=== PATIENT | male | born 1950 | race Caucasian/White ===

== ENCOUNTER → 2019-11-21 08:38 | Outpatient (CLI) | payer MEDICARE, OTHER, SELFPAY ==
--- NOTE | 2019-11-21 08:42 | DI.RAD.S_ITS ---
PROCEDURE: XR FOOT RT MIN 3V INDICATIONS: r foot pain TECHNIQUE: 3 views of the foot were acquired. COMPARISON: None. FINDINGS: Bones: Minimally displaced fracture at the distal aspect of the fourth metatarsal. Soft tissues: No tibiotalar joint effusion. Achilles tendon appears normal. IMPRESSION: Minimally displaced fourth metatarsal fracture. Dictated by: Aline Pelayo M.D. on 11/21/2019 at 9:03 Approved by: Aline Pelayo M.D. on 11/21/2019 at 9:04
== END ==
PROVIDERS: Referring Provider Physician Assistant; Visit Provider Physician Assistant
DX: M79.671 Pain in right foot (principal); S92.341A Displaced fracture of fourth metatarsal bone, right foot, initial encounter for closed fracture
CPT/HCPCS: 73630

== ENCOUNTER → 2021-02-04 08:16 | Outpatient (CLI) | payer MEDICARE, OTHER, SELFPAY ==
--- NOTE | 2021-02-04 08:20 | DI.RAD.S_ITS ---
PROCEDURE: XR HIP W PEL IF DONE RT 2V INDICATIONS: right hip pain TECHNIQUE: AP pelvis with lateral view(s) of the right hip(s). COMPARISON: None. FINDINGS: Bones: No fractures or dislocations. Pelvic ring appears intact. No suspicious bony lesions. Mild symmetric hip joint osteoarthritis incidentally noted. Soft tissues: The visualized bowel gas pattern is normal. No suspicious soft tissue calcifications. IMPRESSION: Mild symmetric hip joint osteoarthritis incidentally noted, no trauma found. Dictated by: Freddie Ravi M.D. on 02/04/2021 at 8:44 Approved by: Freddie Ravi M.D. on 02/04/2021 at 8:46
== END ==
PROVIDERS: Referring Provider Physician Assistant; Visit Provider Physician Assistant
DX: M25.551 Pain in right hip (principal); M16.11 Unilateral primary osteoarthritis, right hip
CPT/HCPCS: 73502

== ENCOUNTER → 2021-04-25 10:01 | Outpatient (CLI) | payer MEDICARE, OTHER, SELFPAY ==
[2021-04-25 10:54] LABS: Add Manual Diff / Slide Review NO; Basophils Absolute Auto 100 /uL (0-100); Basophils Percent Auto 1.8 % (0-2); Eosinophils Absolute Auto 100 /uL (0-450); Eosinophils Percent Auto 2.6 % (2-4); Hematocrit 41.6 % (41-53); Hemoglobin 14.1 g/dL (13.5-17.5); Lymphocytes Absolute Auto 1700 /uL (1100-4500); Lymphocytes Percent Auto 31.9 % (25-40); Mean Corpuscular Hemoglobin 35.5 PG (26-34); Mean Corpuscular Volume 104.4 fL (80-100); Monocytes Absolute Auto 500 /uL (0-900); Monocytes Percent Auto 8.8 % (3-14); Neutrophils Absolute Auto 3000 /uL (1500-7000); Neutrophils Percent Auto 54.9 % (50-75); Platelet Count 187 X10^3/uL (150-400); Red Blood Cell Count 3.99 X10^6/uL (4.5-5.9); Red Cell Distribution Width 12.9 % (11.6-14.8); White Blood Cell Count 5.4 X10^3/uL (4.5-11.0)
[2021-04-25 11:11] LABS: Alanine Aminotransferase 37 IU/L (<50); Albumin 4.4 g/dL (3.5-5.0); Albumin Globulin Ratio 1.3 (1.0-2.8); Alkaline Phosphatase 81 U/L (38-126); Aspartate Aminotransferase 50 IU/L (17-59); BUN Creatinine Ratio 21.3 (6-22); Bilirubin Total 0.8 mg/dL (0.2-1.3); Blood Urea Nitrogen 19 mg/dL (9-20); Calcium 10.1 mg/dL (8.4-10.2); Carbon Dioxide 29 mmol/L (22-32); Chloride 104 mmol/L (98-107); Cholesterol 241 mg/dL (140-199); Estimated Glomerular Filt Rate > 60.0 mL/min (>60); Globulin 3.3 g/dL (1.7-4.1); Glucose 94 mg/dL (80-110); HDL Cholesterol 109 mg/dL (40-60); HEMOLYSIS < 15 (0-50); LDL Cholesterol Calculated 107 mg/dL (<100); Potassium 4.3 mmol/L (3.4-5.1); Sodium 139 mmol/L (137-145); Total Protein 7.7 g/dL (6.3-8.2); Triglycerides 125 mg/dL (35-150)
[2021-04-25 11:39] LABS: TSH w/ Reflex to FT4 1.35 uIU/mL (0.47-4.68)
[2021-04-25 11:41] LABS: Prostate Specific Antigen Scrn 2.64 ng/mL (0.1-4.0)
[2021-04-25 16:16] LABS: Creatinine Urine Random 171.5 mg/dL
[2021-04-25 16:21] LABS: Microalbumi Creatinin Ratio Ur 8.7 ug/mg CR (<30); Microalbumin Urine Random 1.5 mg/dL (0-1.6)
== END ==
PROVIDERS: Family Provider Family Medicine; PCP Family Medicine; Referring Provider Family Medicine; Visit Provider Family Medicine
DX: I10 Essential (primary) hypertension (principal); Z12.5 Encounter for screening for malignant neoplasm of prostate; M16.11 Unilateral primary osteoarthritis, right hip; Z13.220 Encounter for screening for lipoid disorders
CPT/HCPCS: 36415; 80053; 80061; 82043; 82570; 84443; 85025; G0103

== ENCOUNTER 2021-06-23 08:15 | Outpatient (RCR) | payer MEDICARE, OTHER, SELFPAY ==
--- NOTE | 2021-04-25 12:45 | PT.OIE ---
Current Diagnoses Unilateral primary osteoarthritis, right hip (04/25/21) Trochanteric bursitis, right hip (04/25/21) Past Medical History (Last Updated 03/28/21 @ 14:40 by Sean Burr MD) Osteoarthritis of right hip Primary hypertension Visit Care Team Role Provider Type Sean Burr MD Attending Provider Physician Family Provider Primary Care Provider Referring Provider Specialty: Family Practice Address: [address] [place] [address], [facility] Email: [email or web address] Physical Therapy Initial Evaluation PT-OP-A Visit Information Start: 04/06/21 14:58 Freq: Status: Active Protocol: Document 04/25/21 08:57 MB (Rec: 04/25/21 09:11 MB [id number]) Out-Patient Physical Therapy Visit Information Visit Information Visit Type Initial Evaluation Visit Note Medicare, 09/14 before KX Visit Start Time 08:57 Visit Stop Time 09:42 Total Visit Minutes 45 Visit Number 1 Evaluation Information Evaluation Date 04/25/21 PT-OP-B Current Condition Start: 04/06/21 14:58 Freq: Status: Active Protocol: Document 04/25/21 08:57 MB (Rec: 04/25/21 09:11 MB [id number]) Current Condition History of Current Condition Onset Date 6-10 months ago Current Complaints Right lateral hip pain over trochanter History of Current Condition Pt reports that he broke a metatarsal bone in his right foot about a year ago. He was in a boot and then got out. He did not get any therapy. The height of his boot was higher than his regular shoes and then the hip pain started about 6-10 months ago. Pt rates pain as 1-3/10 over lateral right hip since that time. Pt is taking THC and Advil and they may or may not be helpful. He wears loafers with arches in them in the house. He is taking walks on concrete and the road and that increases pain. Walking on hard surfaces is a problem. Walking on soft surfaces is not a problem. Pt has plantar fasciitis on his right foot. It was before the metatarsal fracture. He has two types hiking boots and he has good walking shoes. Pt states that the toes of both feet get tingly. They have been that way for a long time. It affects his balance. He uses a balance wheel that isn't very effective. Prior Treatments and Tests Pt has never had therapy Right hip x-ray: mild hip OA Treatment Goals Patient/Caregiver Goals To decrease right hip pain PT-OP-C Subjective Start: 04/06/21 14:58 Freq: Status: Active Protocol: Document 04/25/21 08:57 MB (Rec: 04/25/21 09:11 MB [id number]) OP-PT Subjective Patient Comments Patient Comments See history of current condition. PT-OP-G Mobility & Gait Start: 04/06/21 14:58 Freq: Status: Active Protocol: Document 04/25/21 08:57 MB (Rec: 04/25/21 12:45 MB [id number]) OP Gait Assessment Comments Gait Comments Decreased hip and pelvic movement with bare foot gait and he has no toe push-off either foot and actually has shorter steps with push-off through metatarsals, greater on the left. PT-OP-J Posture/Palpation/Skin Start: 04/06/21 14:58 Freq: Status: Active Protocol: Document 04/25/21 08:57 MB (Rec: 04/25/21 12:45 MB [id number]) Posture Evaluation Comments Posture Comments Standing posture with bare feet: left tragus is 2 in front of left AC joint, right shoulder is lower than the left and left scapula is 1/4 higher than the right. Pt presents with convexity to the right in thoracic spine, left iliac crest is slightly higher than the right, left fifth toe does not touch the floor and is adducted up and over 4th digit, WB right foot is heel to lateral foot. Many toe changes on the left and his 2nd-4th toes on the left do not extend. Pt reports that his shoes were too small in his teenage years and this may have affected his toes. PT-OP-K Range of Motion Start: 04/06/21 14:58 Freq: Status: Active Protocol: Document 04/25/21 08:57 MB (Rec: 04/25/21 12:45 MB [id number]) Hip Goniometric Range of Motion Hip ROM Limitations Comments Passive SLR in supine: right 20 deg and left 35 deg Ankle and Foot Goniometric Range of Motion Ankle and Foot ROM Limitations Comments Limited left ankle DF that does not reach neutral. Pt denies injury. He does appear to have changes at left talus, many toe changes Toe Range of Motion Toes ROM Limitations Comments Many toe changes, greater on the left foot. See postural comments above. No real toe extension through left digits and he has joint changes PT-OP-M Strength Start: 04/06/21 14:58 Freq: Status: Active Protocol: Document 04/25/21 08:57 MB (Rec: 04/25/21 12:45 MB [id number]) Hip Strength Hip Manual Muscle Testing Left Flexion (L2) 4 Good Abduction 3- Fair- Adduction 3 Fair Right Flexion (L2) 4 Good Abduction 3 Fair Adduction 3 Fair Knee Strength Knee Manual Muscle Testing Left Flexion (S2) 5 Normal Extension (L3) 5 Normal Right Flexion (S2) 5 Normal Extension (L3) 5 Normal Ankle/Foot Strength Ankle and Foot Manual Muscle Testing Left Comments MMT not accurate d/t range limitations Right Dorsiflexion (L4) 5 Normal Inversion 4 Good Eversion (S1) 4 Good Toe Strength Toe Manual Muscle Testing Left Great Toe Extension 3 Fair Right Great Toe Extension 4 Good PT-OP-Q Treatments Start: 04/06/21 14:58 Freq: Status: Active Protocol: Document 04/25/21 08:57 MB (Rec: 04/25/21 09:34 MB [id number]) Therapeutic Exercises Supine Exercises Pelvic realigment exercises Side bilateral Comments 5 rep, 3 sec hold all exercises PT-OP-T Assessment and Plan Start: 04/06/21 14:58 Freq: Status: Active Protocol: Document 04/25/21 08:57 MB (Rec: 04/25/21 12:45 MB [id number]) Physical Therapy Assessment Rehab Potential Rehabilitation Potential Fair Evaluation Complexity Number of Personal Factors/Comorbidities 1-2 Number of Body Systems Impaired 3 Clinical Presentation at Evaluation Evolving Impairments Impairments Activity Tolerance,Balance, Gait,Pain,Posture,ROM, Sensation,Soft Tissue Mobility ,Strength Other Impairments Personal factors include pt con't to walk on hard surfaces despite pain and he con't to sleep on right side despite right hip pain (he states that he cannot breathe well on his left side d/t nostril). Body systems affected include musculoskeletal, neuromuscular and neurological (pt reports tingling and decreased sensation in toes of both feet ). His clinical presentation is evolving in setting of OA right hip and trouble with sensation in toes. Other Concerns Fall Risk Yes Goals 3 Prison Goal (LTG) Pt will perform progressive HEP with I including flexiblity, pelvic realignment , strengthening and balance exercises to improve pain and balance by 06/25/21. LTG Duration 8 weeks 2 Prison Goal (LTG) Pt will perform WNLs on a standardized balance test to decrease fall risk by 06/25/21 . LTG Duration 8 weeks 1 [employer] Goal (LTG) Pt will report an 80% improvement in right lateral hip pain to improve quality of life by 06/25/21. LTG Duration 8 weeks Assessment Summary Assessment Pt is a 70 y/o male presenting with pain specifically over his right greater trochanter that is worse with sleeping on his right side and walking on concrete. X-ray revealed moderate right hip OA and his symptoms do seem to correspond with OA. He states that he cannot sleep on his left side d/t nasal issue. He has many changes in his feet, specifically his left toes and reports of right metatarsal fracture and plantar fasciitis in the recent past. These foot changes contribute to his overall postural presentation . He also has some changes in spinal curvature. He will benefit from PT to improve flexibility, pelvic alignment, strength and balance. Pt reports little to no sensation in any of his toes and that this affects his balance as well. Recommend follow-up with Dr. Burr about this. Physical Therapy Plan Frequency and Duration Frequency of Treatment 1-2x/wk Duration of Treatment 8 weeks Plan of Care Start Date 04/25/21 Plan of Care End Date 06/25/21 Therapeutic Interventions Therapeutic Interventions Balance Training,Canalithic Repositioning,Gait Training, Home Exercise Program,Joint Mobilizations,Manual Therapy, Neuromuscular Re-education, Patient/Caregiver Education, Self-Care/Home Management,Soft Tissue Mobilization, Therapeutic Activities, Therapeutic Exercises Modalities Cold Pack/Ice Massage,Hot Packs Next Visit Focus/Plan Next Note Type Treatment Note Next Visit Plan Progress flexibility exercises including Augustus stretch, hamstring stretch, hip rotator stretch. Teach self-massage for vastus lateralis with rolling pin
--- NOTE | 2021-04-25 12:45 | PT.OPPOC ---
Physical, Occupational & Speech Therapy At [facility] Current Diagnoses Unilateral primary osteoarthritis, right hip (04/25/21) Trochanteric bursitis, right hip (04/25/21) Visit Care Team Role Provider Type Sean Burr MD Attending Provider Physician Family Provider Primary Care Provider Referring Provider Specialty: Family Practice Address: [address] [place] [address], [facility] Email: [email or web address] Plan Of Care PT-OP-T Assessment and Plan Start: 04/06/21 14:58 Freq: Status: Active Protocol: Document 04/25/21 08:57 MB (Rec: 04/25/21 12:45 MB [id number]) Physical Therapy Assessment Rehab Potential Rehabilitation Potential Fair Evaluation Complexity Number of Personal Factors/Comorbidities 1-2 Number of Body Systems Impaired 3 Clinical Presentation at Evaluation Evolving Impairments Impairments Activity Tolerance,Balance, Gait,Pain,Posture,ROM, Sensation,Soft Tissue Mobility ,Strength Other Impairments Personal factors include pt con't to walk on hard surfaces despite pain and he con't to sleep on right side despite right hip pain (he states that he cannot breathe well on his left side d/t nostril). Body systems affected include musculoskeletal, neuromuscular and neurological (pt reports tingling and decreased sensation in toes of both feet ). His clinical presentation is evolving in setting of OA right hip and trouble with sensation in toes. Other Concerns Fall Risk Yes Goals 3 Fdc Goal (LTG) Pt will perform progressive HEP with I including flexiblity, pelvic realignment , strengthening and balance exercises to improve pain and balance by 06/25/21. LTG Duration 8 weeks 2 Offset Label Rewinder Goal (LTG) Pt will perform WNLs on a standardized balance test to decrease fall risk by 06/25/21 . LTG Duration 8 weeks 1 Fdc Goal (LTG) Pt will report an 80% improvement in right lateral hip pain to improve quality of life by 06/25/21. LTG Duration 8 weeks Assessment Summary Assessment Pt is a 70 y/o male presenting with pain specifically over his right greater trochanter that is worse with sleeping on his right side and walking on concrete. X-ray revealed moderate right hip OA and his symptoms do seem to correspond with OA. He states that he cannot sleep on his left side d/t nasal issue. He has many changes in his feet, specifically his left toes and reports of right metatarsal fracture and plantar fasciitis in the recent past. These foot changes contribute to his overall postural presentation . He also has some changes in spinal curvature. He will benefit from PT to improve flexibility, pelvic alignment, strength and balance. Pt reports little to no sensation in any of his toes and that this affects his balance as well. Recommend follow-up with Dr. Burr about this. Physical Therapy Plan Frequency and Duration Frequency of Treatment 1-2x/wk Duration of Treatment 8 weeks Plan of Care Start Date 04/25/21 Plan of Care End Date 06/25/21 Therapeutic Interventions Therapeutic Interventions Balance Training,Canalithic Repositioning,Gait Training, Home Exercise Program,Joint Mobilizations,Manual Therapy, Neuromuscular Re-education, Patient/Caregiver Education, Self-Care/Home Management,Soft Tissue Mobilization, Therapeutic Activities, Therapeutic Exercises Modalities Cold Pack/Ice Massage,Hot Packs Next Visit Focus/Plan Next Note Type Treatment Note Next Visit Plan Progress flexibility exercises including Augustus stretch, hamstring stretch, hip rotator stretch. Teach self-massage for vastus lateralis with rolling pin Plan of Care Dates Plan of Care Start Date 04/25/21 Plan of Care End Date 06/25/21 Electronically Signed by: Catalina Ferrer PT 04/25/21 9918 Please Sign and Return: I have reviewed this Plan of Care and certify that the skilled therapy services above are required to meet the patient?s needs. Physician Signature Date Printed Name and Credentials Clinical Instructor Signature Printed Name and Credentials
--- NOTE | 2021-04-28 13:01 | PT.OTN ---
Current Diagnoses Unilateral primary osteoarthritis, right hip (04/28/21) Trochanteric bursitis, right hip (04/28/21) Physical Therapy Treatment Note PT-OP-A Visit Information Start: 04/06/21 14:58 Freq: Status: Active Protocol: Document 04/28/21 12:15 MB (Rec: 04/28/21 13:01 MB [id number]) Out-Patient Physical Therapy Visit Information Visit Information Visit Type Treatment Note Visit Note Medicare 10/15 before KX Visit Start Time 12:15 Visit Stop Time 12:55 Total Visit Minutes 40 Visit Number 2 PT-OP-B Current Condition Start: 04/06/21 14:58 Freq: Status: Active Protocol: Document 04/25/21 08:57 MB (Rec: 04/25/21 09:11 MB [id number]) Current Condition History of Current Condition Onset Date 6-10 months ago Current Complaints Right lateral hip pain over trochanter History of Current Condition Pt reports that he broke a metatarsal bone in his right foot about a year ago. He was in a boot and then got out. He did not get any therapy. The height of his boot was higher than his regular shoes and then the hip pain started about 6-10 months ago. Pt rates pain as 1-3/10 over lateral right hip since that time. Pt is taking THC and Advil and they may or may not be helpful. He wears loafers with arches in them in the house. He is taking walks on concrete and the road and that increases pain. Walking on hard surfaces is a problem. Walking on soft surfaces is not a problem. Pt has plantar fasciitis on his right foot. It was before the metatarsal fracture. He has two types hiking boots and he has good walking shoes. Pt states that the toes of both feet get tingly. They have been that way for a long time. It affects his balance. He uses a balance wheel that isn't very effective. Prior Treatments and Tests Pt has never had therapy Right hip x-ray: mild hip OA Treatment Goals Patient/Caregiver Goals To decrease right hip pain PT-OP-C Subjective Start: 04/06/21 14:58 Freq: Status: Active Protocol: Document 04/28/21 12:15 MB (Rec: 04/28/21 13:01 MB [id number]) OP-PT Subjective Patient Comments Patient Comments Pt states that he did the pelvic realignment exercises. He used a paper towel roll. PT-OP-G Mobility & Gait Start: 04/06/21 14:58 Freq: Status: Active Protocol: Document 04/25/21 08:57 MB (Rec: 04/25/21 12:45 MB [id number]) OP Gait Assessment Comments Gait Comments Decreased hip and pelvic movement with bare foot gait and he has no toe push-off either foot and actually has shorter steps with push-off through metatarsals, greater on the left. PT-OP-J Posture/Palpation/Skin Start: 04/06/21 14:58 Freq: Status: Active Protocol: Document 04/25/21 08:57 MB (Rec: 04/25/21 12:45 MB [id number]) Posture Evaluation Comments Posture Comments Standing posture with bare feet: left tragus is 2 in front of left AC joint, right shoulder is lower than the left and left scapula is 1/4 higher than the right. Pt presents with convexity to the right in thoracic spine, left iliac crest is slightly higher than the right, left fifth toe does not touch the floor and is adducted up and over 4th digit, WB right foot is heel to lateral foot. Many toe changes on the left and his 2nd-4th toes on the left do not extend. Pt reports that his shoes were too small in his teenage years and this may have affected his toes. PT-OP-K Range of Motion Start: 04/06/21 14:58 Freq: Status: Active Protocol: Document 04/25/21 08:57 MB (Rec: 04/25/21 12:45 MB [id number]) Hip Goniometric Range of Motion Hip ROM Limitations Comments Passive SLR in supine: right 20 deg and left 35 deg Ankle and Foot Goniometric Range of Motion Ankle and Foot ROM Limitations Comments Limited left ankle DF that does not reach neutral. Pt denies injury. He does appear to have changes at left talus, many toe changes Toe Range of Motion Toes ROM Limitations Comments Many toe changes, greater on the left foot. See postural comments above. No real toe extension through left digits and he has joint changes PT-OP-M Strength Start: 04/06/21 14:58 Freq: Status: Active Protocol: Document 04/25/21 08:57 MB (Rec: 04/25/21 12:45 MB [id number]) Hip Strength Hip Manual Muscle Testing Left Flexion (L2) 4 Good Abduction 3- Fair- Adduction 3 Fair Right Flexion (L2) 4 Good Abduction 3 Fair Adduction 3 Fair Knee Strength Knee Manual Muscle Testing Left Flexion (S2) 5 Normal Extension (L3) 5 Normal Right Flexion (S2) 5 Normal Extension (L3) 5 Normal Ankle/Foot Strength Ankle and Foot Manual Muscle Testing Left Comments MMT not accurate d/t range limitations Right Dorsiflexion (L4) 5 Normal Inversion 4 Good Eversion (S1) 4 Good Toe Strength Toe Manual Muscle Testing Left Great Toe Extension 3 Fair Right Great Toe Extension 4 Good PT-OP-Q Treatments Start: 04/06/21 14:58 Freq: Status: Active Protocol: Document 04/28/21 12:15 MB (Rec: 04/28/21 13:01 MB [id number]) Therapeutic Exercises Supine Exercises Hip rotator stretch Side bilateral Comments Use of towel under right leg to stretch left hip Hamstring stretch Supine Exercise Name Towel behind leg Comments Opposite leg straight, hands behind leg and 30 AP Abdominal drawing in with pelvic tilt Comments Ed and pt to perform before Augustus stretch Augustus stretch Supine Exercise Name Abdominal drawing in and pelvic tilt first Side bilateral Comments 30 sec hold each Pelvic realigment exercises Side bilateral Comments 5 rep, 3 sec hold all exercises Sitting Exercises Use of rolling pin for self massage Comments See saw motion PT-OP-T Assessment and Plan Start: 04/06/21 14:58 Freq: Status: Active Protocol: Document 04/28/21 12:15 MB (Rec: 04/28/21 13:01 MB [id number]) Physical Therapy Assessment Rehab Potential Rehabilitation Potential Fair Evaluation Complexity Number of Personal Factors/Comorbidities 1-2 Number of Body Systems Impaired 3 Clinical Presentation at Evaluation Evolving Impairments Impairments Activity Tolerance,Balance, Gait,Pain,Posture,ROM, Sensation,Soft Tissue Mobility ,Strength Other Impairments Personal factors include pt con't to walk on hard surfaces despite pain and he con't to sleep on right side despite right hip pain (he states that he cannot breathe well on his left side d/t nostril). Body systems affected include musculoskeletal, neuromuscular and neurological (pt reports tingling and decreased sensation in toes of both feet ). His clinical presentation is evolving in setting of OA right hip and trouble with sensation in toes. Other Concerns Fall Risk Yes Goals 3 Vice President [employer] Goal (LTG) Pt will perform progressive HEP with I including flexiblity, pelvic realignment , strengthening and balance exercises to improve pain and balance by 06/25/21. LTG Duration 8 weeks 2 Halfway Goal (LTG) Pt will perform WNLs on a standardized balance test to decrease fall risk by 06/25/21 . LTG Duration 8 weeks 1 Halfway Goal (LTG) Pt will report an 80% improvement in right lateral hip pain to improve quality of life by 06/25/21. LTG Duration 8 weeks Assessment Summary Assessment Initiated flexibility training today and pt performs well. He is wearing jeans and will wear more flexible pants in future treatments. Pt sleeps on his painful right side d/t trouble breathing on his left and so may benefit from nasal breathing training. Physical Therapy Plan Frequency and Duration Frequency of Treatment 1-2x/wk Duration of Treatment 8 weeks Plan of Care Start Date 04/25/21 Plan of Care End Date 06/25/21 Therapeutic Interventions Therapeutic Interventions Balance Training,Canalithic Repositioning,Gait Training, Home Exercise Program,Joint Mobilizations,Manual Therapy, Neuromuscular Re-education, Patient/Caregiver Education, Self-Care/Home Management,Soft Tissue Mobilization, Therapeutic Activities, Therapeutic Exercises Modalities Cold Pack/Ice Massage,Hot Packs Next Visit Focus/Plan Next Note Type Treatment Note Next Visit Plan Ergonomic ed, core progression , manual work, [place] breathing
--- NOTE | 2021-05-05 10:30 | PT.OTN ---
Current Diagnoses Unilateral primary osteoarthritis, right hip (05/05/21) Trochanteric bursitis, right hip (05/05/21) Physical Therapy Treatment Note PT-OP-A Visit Information Start: 04/06/21 14:58 Freq: Status: Active Protocol: Document 05/05/21 09:50 SP (Rec: 05/05/21 10:34 SP [id number]) Out-Patient Physical Therapy Visit Information Visit Information Visit Type Treatment Note Visit Note Medicare 11/12 before KX Visit Start Time 09:50 Visit Stop Time 10:30 Total Visit Minutes 40 Visit Number 3 Number of DOORSHAKER Visits 1 Evaluation Information Evaluation Date 04/25/21 PT-OP-B Current Condition Start: 04/06/21 14:58 Freq: Status: Active Protocol: Document 04/25/21 08:57 MB (Rec: 04/25/21 09:11 MB [id number]) Current Condition History of Current Condition Onset Date 6-10 months ago Current Complaints Right lateral hip pain over trochanter History of Current Condition Pt reports that he broke a metatarsal bone in his right foot about a year ago. He was in a boot and then got out. He did not get any therapy. The height of his boot was higher than his regular shoes and then the hip pain started about 6-10 months ago. Pt rates pain as 1-3/10 over lateral right hip since that time. Pt is taking THC and Advil and they may or may not be helpful. He wears loafers with arches in them in the house. He is taking walks on concrete and the road and that increases pain. Walking on hard surfaces is a problem. Walking on soft surfaces is not a problem. Pt has plantar fasciitis on his right foot. It was before the metatarsal fracture. He has two types hiking boots and he has good walking shoes. Pt states that the toes of both feet get tingly. They have been that way for a long time. It affects his balance. He uses a balance wheel that isn't very effective. Prior Treatments and Tests Pt has never had therapy Right hip x-ray: mild hip OA Treatment Goals Patient/Caregiver Goals To decrease right hip pain PT-OP-C Subjective Start: 04/06/21 14:58 Freq: Status: Active Protocol: Document 05/05/21 09:50 SP (Rec: 05/05/21 10:34 SP [id number]) OP-PT Subjective Patient Comments Patient Comments Pt stated not seeing improvements but doing the stretching. He still has pain in R hip WB on firm surfaces, but better or none over soft surfaces. Sleeps on R side at night only, and not L due to not able to breath well on L due to blockage nostril. Patient Reported Progress Same PT-OP-G Mobility & Gait Start: 04/06/21 14:58 Freq: Status: Active Protocol: Document 04/25/21 08:57 MB (Rec: 04/25/21 12:45 MB [id number]) OP Gait Assessment Comments Gait Comments Decreased hip and pelvic movement with bare foot gait and he has no toe push-off either foot and actually has shorter steps with push-off through metatarsals, greater on the left. PT-OP-J Posture/Palpation/Skin Start: 04/06/21 14:58 Freq: Status: Active Protocol: Document 04/25/21 08:57 MB (Rec: 04/25/21 12:45 MB [id number]) Posture Evaluation Comments Posture Comments Standing posture with bare feet: left tragus is 2 in front of left AC joint, right shoulder is lower than the left and left scapula is 1/4 higher than the right. Pt presents with convexity to the right in thoracic spine, left iliac crest is slightly higher than the right, left fifth toe does not touch the floor and is adducted up and over 4th digit, WB right foot is heel to lateral foot. Many toe changes on the left and his 2nd-4th toes on the left do not extend. Pt reports that his shoes were too small in his teenage years and this may have affected his toes. PT-OP-K Range of Motion Start: 04/06/21 14:58 Freq: Status: Active Protocol: Document 04/25/21 08:57 MB (Rec: 04/25/21 12:45 MB [id number]) Hip Goniometric Range of Motion Hip ROM Limitations Comments Passive SLR in supine: right 20 deg and left 35 deg Ankle and Foot Goniometric Range of Motion Ankle and Foot ROM Limitations Comments Limited left ankle DF that does not reach neutral. Pt denies injury. He does appear to have changes at left talus, many toe changes Toe Range of Motion Toes ROM Limitations Comments Many toe changes, greater on the left foot. See postural comments above. No real toe extension through left digits and he has joint changes PT-OP-M Strength Start: 04/06/21 14:58 Freq: Status: Active Protocol: Document 04/25/21 08:57 MB (Rec: 04/25/21 12:45 MB [id number]) Hip Strength Hip Manual Muscle Testing Left Flexion (L2) 4 Good Abduction 3- Fair- Adduction 3 Fair Right Flexion (L2) 4 Good Abduction 3 Fair Adduction 3 Fair Knee Strength Knee Manual Muscle Testing Left Flexion (S2) 5 Normal Extension (L3) 5 Normal Right Flexion (S2) 5 Normal Extension (L3) 5 Normal Ankle/Foot Strength Ankle and Foot Manual Muscle Testing Left Comments MMT not accurate d/t range limitations Right Dorsiflexion (L4) 5 Normal Inversion 4 Good Eversion (S1) 4 Good Toe Strength Toe Manual Muscle Testing Left Great Toe Extension 3 Fair Right Great Toe Extension 4 Good PT-OP-Q Treatments Start: 04/06/21 14:58 Freq: Status: Active Protocol: Document 05/05/21 09:50 SP (Rec: 05/05/21 10:34 SP [id number]) Therapeutic Exercises Supine Exercises Hamstring stretch Supine Exercise Name grasps behind thigh Side bilateral Reps/Minutes 30 sec Comments Opposite leg straight, hands behind leg and 30 AP Abdominal drawing in with pelvic tilt Side right Reps/Minutes 3 sec hold x5 Comments Ed and pt to perform before Augustus stretch Augustus stretch Supine Exercise Name Abdominal drawing in and pelvic tilt first Side bilateral Reps/Minutes 30 hold x2-3 reps Comments reviewed holding for time allowed to decrease hip tension Pelvic realigment exercises Side bilateral Equipment Used uses roll of toilet paper Comments 5 rep, 3 sec hold all exercises Sitting Exercises pirformis stretch Sitting Exercise Name added to HEP in different seated vs supine position- finds seated better Side bilateral Reps/Minutes 30 x2 Comments good feedback results of streth Use of rolling pin for self massage Sitting Exercise Name over quad: distal sup R knee, Mid quad L Comments See saw motion- good performance Standing Exercises self massage ball on wall Standing Exercise Name Glut med, pirformis- added for HEP Side right Equipment Used racquetball ball on wall Reps/Minutes 2 min Comments good feedback results Manual Therapy Treatment Soft Tissue Mobilization R hip Body Location pirformis, glut med, TFL Mobilization Type Myofascial Release,Strumming Intensity/Depth Moderate Body Position Sidelying Comments L sidelying- good feedback response Self-Care/Home Management Treatment Education Patient Education Joint Protection,Pain Management Other Education discussed sleeping w/ pillows between BLE on R side to see of helpful pain on R side. Can 't sleep on L due to decreased nostril blockage. PT-OP-T Assessment and Plan Start: 04/06/21 14:58 Freq: Status: Active Protocol: Document 05/05/21 09:50 SP (Rec: 05/05/21 10:34 SP [id number]) Physical Therapy Assessment Goals 3 Cutting Pressman Goal (LTG) Pt will perform progressive HEP with I including flexiblity, pelvic realignment , strengthening and balance exercises to improve pain and balance by 06/25/21. LTG Duration 8 weeks 2 Nursing Home Goal (LTG) Pt will perform WNLs on a standardized balance test to decrease fall risk by 06/25/21 . LTG Duration 8 weeks 1 Nursing Home Goal (LTG) Pt will report an 80% improvement in right lateral hip pain to improve quality of life by 06/25/21. LTG Duration 8 weeks Assessment Summary Assessment Pt stated still having pain over R hip, reported lessening post manual and stretching. Initiated self STMs using racquetball/ tennis ball on wall for self performance/ relief with good results and reviewed use of rolling pin, still has to find his at home and seemed to help during PT tx. Reviewed stretching HEP with no adverse affects, occasional cues for set up. Discussed sleeping positioning and use of pillows for relief of pain on R hip but unableto sleep on L due to nostril lack of breathing. Next tx assess if pillow support education helped improved alignment for confort. If improving, progress core strengthening, and initiated butekyo breathing next tx. Physical Therapy Plan Frequency and Duration Frequency of Treatment 1-2x/wk Duration of Treatment 8 weeks Plan of Care Start Date 04/25/21 Plan of Care End Date 06/25/21 Therapeutic Interventions Therapeutic Interventions Balance Training,Canalithic Repositioning,Gait Training, Home Exercise Program,Joint Mobilizations,Manual Therapy, Neuromuscular Re-education, Patient/Caregiver Education, Self-Care/Home Management,Soft Tissue Mobilization, Therapeutic Activities, Therapeutic Exercises Modalities Cold Pack/Ice Massage,Hot Packs Next Visit Focus/Plan Next Note Type Treatment Note Next Visit Plan Assess response to manual, stretching and initiated self STMS using rolling pin/ racquetball on wall. POC: Ergonomic ed, core progression, manual work, Buteyko breathing
--- NOTE | 2021-05-12 13:54 | PT.OTN ---
Current Diagnoses Unilateral primary osteoarthritis, right hip (05/12/21) Trochanteric bursitis, right hip (05/12/21) Physical Therapy Treatment Note PT-OP-A Visit Information Start: 04/06/21 14:58 Freq: Status: Active Protocol: Document 05/12/21 13:00 SP (Rec: 05/13/21 15:26 SP [id number]) Out-Patient Physical Therapy Visit Information Visit Information Visit Type Treatment Note Visit Note Medicare 12/13 before KX Visit Start Time 13:00 Visit Stop Time 13:54 Total Visit Minutes 54 Visit Number 4 Number of MENTAL HEALTH PRACTITIONER Visits 2 Evaluation Information Evaluation Date 04/25/21 PT-OP-B Current Condition Start: 04/06/21 14:58 Freq: Status: Active Protocol: Document 04/25/21 08:57 MB (Rec: 04/25/21 09:11 MB [id number]) Current Condition History of Current Condition Onset Date 6-10 months ago Current Complaints Right lateral hip pain over trochanter History of Current Condition Pt reports that he broke a metatarsal bone in his right foot about a year ago. He was in a boot and then got out. He did not get any therapy. The height of his boot was higher than his regular shoes and then the hip pain started about 6-10 months ago. Pt rates pain as 1-3/10 over lateral right hip since that time. Pt is taking THC and Advil and they may or may not be helpful. He wears loafers with arches in them in the house. He is taking walks on concrete and the road and that increases pain. Walking on hard surfaces is a problem. Walking on soft surfaces is not a problem. Pt has plantar fasciitis on his right foot. It was before the metatarsal fracture. He has two types hiking boots and he has good walking shoes. Pt states that the toes of both feet get tingly. They have been that way for a long time. It affects his balance. He uses a balance wheel that isn't very effective. Prior Treatments and Tests Pt has never had therapy Right hip x-ray: mild hip OA Treatment Goals Patient/Caregiver Goals To decrease right hip pain PT-OP-C Subjective Start: 04/06/21 14:58 Freq: Status: Active Protocol: Document 05/12/21 13:00 SP (Rec: 05/13/21 15:26 SP [id number]) OP-PT Subjective Patient Comments Patient Comments Pt states compliant with stretching HEP doesn't see immediate positive responses. Noted that walking firm surfaces having decreasing pain after 10- 15 min of mobility. Patient Reported Progress Improving PT-OP-G Mobility & Gait Start: 04/06/21 14:58 Freq: Status: Active Protocol: Document 04/25/21 08:57 MB (Rec: 04/25/21 12:45 MB [id number]) OP Gait Assessment Comments Gait Comments Decreased hip and pelvic movement with bare foot gait and he has no toe push-off either foot and actually has shorter steps with push-off through metatarsals, greater on the left. PT-OP-J Posture/Palpation/Skin Start: 04/06/21 14:58 Freq: Status: Active Protocol: Document 04/25/21 08:57 MB (Rec: 04/25/21 12:45 MB [id number]) Posture Evaluation Comments Posture Comments Standing posture with bare feet: left tragus is 2 in front of left AC joint, right shoulder is lower than the left and left scapula is 1/4 higher than the right. Pt presents with convexity to the right in thoracic spine, left iliac crest is slightly higher than the right, left fifth toe does not touch the floor and is adducted up and over 4th digit, WB right foot is heel to lateral foot. Many toe changes on the left and his 2nd-4th toes on the left do not extend. Pt reports that his shoes were too small in his teenage years and this may have affected his toes. PT-OP-K Range of Motion Start: 04/06/21 14:58 Freq: Status: Active Protocol: Document 04/25/21 08:57 MB (Rec: 04/25/21 12:45 MB [id number]) Hip Goniometric Range of Motion Hip ROM Limitations Comments Passive SLR in supine: right 20 deg and left 35 deg Ankle and Foot Goniometric Range of Motion Ankle and Foot ROM Limitations Comments Limited left ankle DF that does not reach neutral. Pt denies injury. He does appear to have changes at left talus, many toe changes Toe Range of Motion Toes ROM Limitations Comments Many toe changes, greater on the left foot. See postural comments above. No real toe extension through left digits and he has joint changes PT-OP-M Strength Start: 04/06/21 14:58 Freq: Status: Active Protocol: Document 04/25/21 08:57 MB (Rec: 04/25/21 12:45 MB [id number]) Hip Strength Hip Manual Muscle Testing Left Flexion (L2) 4 Good Abduction 3- Fair- Adduction 3 Fair Right Flexion (L2) 4 Good Abduction 3 Fair Adduction 3 Fair Knee Strength Knee Manual Muscle Testing Left Flexion (S2) 5 Normal Extension (L3) 5 Normal Right Flexion (S2) 5 Normal Extension (L3) 5 Normal Ankle/Foot Strength Ankle and Foot Manual Muscle Testing Left Comments MMT not accurate d/t range limitations Right Dorsiflexion (L4) 5 Normal Inversion 4 Good Eversion (S1) 4 Good Toe Strength Toe Manual Muscle Testing Left Great Toe Extension 3 Fair Right Great Toe Extension 4 Good PT-OP-Q Treatments Start: 04/06/21 14:58 Freq: Status: Active Protocol: Document 05/12/21 13:00 SP (Rec: 05/13/21 15:26 SP [id number]) Therapeutic Exercises Supine Exercises TA SLR Supine Exercise Name added to HEP Side bilateral Reps/Minutes 2x5 reps Comments cued neutral pelvis, core fac, slow eccentric control clamshell Supine Exercise Name added to HEP Resistance TB #1 Reps/Minutes 2x10 Comments cued neutral pelvis, core fac, slow eccentric control Neuro Re-Education Treatment Balance Activities SLS Details core, hip abd fac w/ trunk alignment Surface firm Equipment counter contace PRN, mirror Comments cued elevated posture over stance LE w/ core facillitation. Improved time as reps progressed. corner balance Details NBOS, semi tandem Surface firm Equipment back to corner, chair front Comments Pt able to complete head turns NBOS, semi tandem, EC NBOS 30 , 3 sec semitandem and LOB to L. Instructed leave EC semi tandem in PT only with agreement. Self-Care/Home Management Treatment Education Patient Education Body Mechanics,Joint Protection,Pain Management, Posture Other Education Extra time spent discussing and performance of seated ergonomic set up of use of laptop propped up on pillow in lap and pillows behind back for upright posture due to not having extra desk for him to use, uses office for work . MENTAL HEALTH PRACTITIONER suggested using kitchen table if possible. PT-OP-T Assessment and Plan Start: 04/06/21 14:58 Freq: Status: Active Protocol: Document 05/12/21 13:00 SP (Rec: 05/13/21 15:26 SP [id number]) Physical Therapy Assessment Goals 3 [facility] Goal (LTG) Pt will perform progressive HEP with I including flexiblity, pelvic realignment , strengthening and balance exercises to improve pain and balance by 06/25/21. LTG Duration 8 weeks 2 Immunohematologist Goal (LTG) Pt will perform WNLs on a standardized balance test to decrease fall risk by 06/25/21 . LTG Duration 8 weeks 1 [facility] Goal (LTG) Pt will report an 80% improvement in right lateral hip pain to improve quality of life by 06/25/21. LTG Duration 8 weeks Assessment Summary Assessment Pt stated compliant with stretching, tolerated initiated core and hip abd strengthening. Improved pelvic / trunk stability with cuing, painfree, improved awareness of balance post initiated supine ther ex and SLS in mirror and carryover to corner balance for HEP. Physical Therapy Plan Frequency and Duration Frequency of Treatment 1-2x/wk Duration of Treatment 8 weeks Plan of Care Start Date 04/25/21 Plan of Care End Date 06/25/21 Therapeutic Interventions Therapeutic Interventions Balance Training,Canalithic Repositioning,Gait Training, Home Exercise Program,Joint Mobilizations,Manual Therapy, Neuromuscular Re-education, Patient/Caregiver Education, Self-Care/Home Management,Soft Tissue Mobilization, Therapeutic Activities, Therapeutic Exercises Modalities Cold Pack/Ice Massage,Hot Packs Next Visit Focus/Plan Next Note Type Treatment Note Next Visit Plan Assess response to added core and hip abd strengthening progression and suggestions of posture and laptop use for improved alignment last tx. POC and next tx: recheck in on Ergonomic ed, progress core progression, manual work, added Buteyko breathing
--- NOTE | 2021-05-18 10:07 | PT.OTN ---
Current Diagnoses Unilateral primary osteoarthritis, right hip (05/18/21) Trochanteric bursitis, right hip (05/18/21) Physical Therapy Treatment Note PT-OP-A Visit Information Start: 04/06/21 14:58 Freq: Status: Active Protocol: Document 05/18/21 08:58 MB (Rec: 05/18/21 10:07 MB [id number]) Out-Patient Physical Therapy Visit Information Visit Information Visit Type Treatment Note Visit Note Medicare 01/12 before KX Visit Start Time 08:58 Visit Stop Time 09:58 Total Visit Minutes 60 Visit Number 5 Number of MISSILE PAD MECHANIC Visits 0 Evaluation Information Evaluation Date 04/25/21 PT-OP-B Current Condition Start: 04/06/21 14:58 Freq: Status: Active Protocol: Document 04/25/21 08:57 MB (Rec: 04/25/21 09:11 MB [id number]) Current Condition History of Current Condition Onset Date 6-10 months ago Current Complaints Right lateral hip pain over trochanter History of Current Condition Pt reports that he broke a metatarsal bone in his right foot about a year ago. He was in a boot and then got out. He did not get any therapy. The height of his boot was higher than his regular shoes and then the hip pain started about 6-10 months ago. Pt rates pain as 1-3/10 over lateral right hip since that time. Pt is taking THC and Advil and they may or may not be helpful. He wears loafers with arches in them in the house. He is taking walks on concrete and the road and that increases pain. Walking on hard surfaces is a problem. Walking on soft surfaces is not a problem. Pt has plantar fasciitis on his right foot. It was before the metatarsal fracture. He has two types hiking boots and he has good walking shoes. Pt states that the toes of both feet get tingly. They have been that way for a long time. It affects his balance. He uses a balance wheel that isn't very effective. Prior Treatments and Tests Pt has never had therapy Right hip x-ray: mild hip OA Treatment Goals Patient/Caregiver Goals To decrease right hip pain PT-OP-C Subjective Start: 04/06/21 14:58 Freq: Status: Active Protocol: Document 05/18/21 08:58 MB (Rec: 05/18/21 10:07 MB [id number]) OP-PT Subjective Patient Comments Patient Comments Pt states that his right hip pain is still the same. He states that walking on hard surfaces still causes pain and soft surfaces is better. He feels a little better after walking 15 minutes. He can then do an hour walk on a hard surface for an hour. PT-OP-G Mobility & Gait Start: 04/06/21 14:58 Freq: Status: Active Protocol: Document 04/25/21 08:57 MB (Rec: 04/25/21 12:45 MB [id number]) OP Gait Assessment Comments Gait Comments Decreased hip and pelvic movement with bare foot gait and he has no toe push-off either foot and actually has shorter steps with push-off through metatarsals, greater on the left. PT-OP-J Posture/Palpation/Skin Start: 04/06/21 14:58 Freq: Status: Active Protocol: Document 04/25/21 08:57 MB (Rec: 04/25/21 12:45 MB [id number]) Posture Evaluation Comments Posture Comments Standing posture with bare feet: left tragus is 2 in front of left AC joint, right shoulder is lower than the left and left scapula is 1/4 higher than the right. Pt presents with convexity to the right in thoracic spine, left iliac crest is slightly higher than the right, left fifth toe does not touch the floor and is adducted up and over 4th digit, WB right foot is heel to lateral foot. Many toe changes on the left and his 2nd-4th toes on the left do not extend. Pt reports that his shoes were too small in his teenage years and this may have affected his toes. PT-OP-K Range of Motion Start: 04/06/21 14:58 Freq: Status: Active Protocol: Document 04/25/21 08:57 MB (Rec: 04/25/21 12:45 MB [id number]) Hip Goniometric Range of Motion Hip ROM Limitations Comments Passive SLR in supine: right 20 deg and left 35 deg Ankle and Foot Goniometric Range of Motion Ankle and Foot ROM Limitations Comments Limited left ankle DF that does not reach neutral. Pt denies injury. He does appear to have changes at left talus, many toe changes Toe Range of Motion Toes ROM Limitations Comments Many toe changes, greater on the left foot. See postural comments above. No real toe extension through left digits and he has joint changes PT-OP-M Strength Start: 04/06/21 14:58 Freq: Status: Active Protocol: Document 04/25/21 08:57 MB (Rec: 04/25/21 12:45 MB [id number]) Hip Strength Hip Manual Muscle Testing Left Flexion (L2) 4 Good Abduction 3- Fair- Adduction 3 Fair Right Flexion (L2) 4 Good Abduction 3 Fair Adduction 3 Fair Knee Strength Knee Manual Muscle Testing Left Flexion (S2) 5 Normal Extension (L3) 5 Normal Right Flexion (S2) 5 Normal Extension (L3) 5 Normal Ankle/Foot Strength Ankle and Foot Manual Muscle Testing Left Comments MMT not accurate d/t range limitations Right Dorsiflexion (L4) 5 Normal Inversion 4 Good Eversion (S1) 4 Good Toe Strength Toe Manual Muscle Testing Left Great Toe Extension 3 Fair Right Great Toe Extension 4 Good PT-OP-Q Treatments Start: 04/06/21 14:58 Freq: Status: Active Protocol: Document 05/18/21 08:58 MB (Rec: 05/18/21 10:07 MB [id number]) Manual Therapy Treatment Other Other Manual Treatments Pt agrees to Counterstrain to asssess and treat fascial tension. He presents with tension in the following fascial systems: ALL, cartilage, visceral, dura, spinal medullary veins, sympathetics and he is tighter on the right. PT treats stacks in dura, spinal medullary vein, sympathetic nerves and ALL and scan does improve. PT-OP-T Assessment and Plan Start: 04/06/21 14:58 Freq: Status: Active Protocol: Document 05/18/21 08:58 MB (Rec: 05/18/21 10:07 MB [id number]) Physical Therapy Assessment Goals 3 Machine Bunch Maker Goal (LTG) Pt will perform progressive HEP with I including flexiblity, pelvic realignment , strengthening and balance exercises to improve pain and balance by 06/25/21. LTG Duration 8 weeks 2 Machine Bunch Maker Goal (LTG) Pt will perform WNLs on a standardized balance test to decrease fall risk by 06/25/21 . LTG Duration 8 weeks 1 Correction Goal (LTG) Pt will report an 80% improvement in right lateral hip pain to improve quality of life by 06/25/21. LTG Duration 8 weeks Assessment Summary Assessment Initiated Counterstrain today and pt responds well. He has a lot of fascial tension and this does improve with treatment. Will see if this improves his right hip pain. Progress other manual intervention, flexibility and strengthening. Physical Therapy Plan Frequency and Duration Frequency of Treatment 1-2x/wk Duration of Treatment 8 weeks Plan of Care Start Date 04/25/21 Plan of Care End Date 06/25/21 Therapeutic Interventions Therapeutic Interventions Balance Training,Canalithic Repositioning,Gait Training, Home Exercise Program,Joint Mobilizations,Manual Therapy, Neuromuscular Re-education, Patient/Caregiver Education, Self-Care/Home Management,Soft Tissue Mobilization, Therapeutic Activities, Therapeutic Exercises Modalities Cold Pack/Ice Massage,Hot Packs Next Visit Focus/Plan Next Note Type Treatment Note Next Visit Plan Review exercises, pt to bring in handouts
--- NOTE | 2021-05-25 09:46 | PT.OTN ---
Current Diagnoses Unilateral primary osteoarthritis, right hip (05/25/21) Trochanteric bursitis, right hip (05/25/21) Physical Therapy Treatment Note PT-OP-A Visit Information Start: 04/06/21 14:58 Freq: Status: Active Protocol: Document 05/25/21 09:05 MB (Rec: 05/25/21 09:46 MB [id number]) Out-Patient Physical Therapy Visit Information Visit Information Visit Type Treatment Note Visit Note Medicare 02/12 before KX Visit Start Time 09:05 Visit Stop Time 09:45 Total Visit Minutes 40 Visit Number 6 Evaluation Information Evaluation Date 04/25/21 PT-OP-B Current Condition Start: 04/06/21 14:58 Freq: Status: Active Protocol: Document 04/25/21 08:57 MB (Rec: 04/25/21 09:11 MB [id number]) Current Condition History of Current Condition Onset Date 6-10 months ago Current Complaints Right lateral hip pain over trochanter History of Current Condition Pt reports that he broke a metatarsal bone in his right foot about a year ago. He was in a boot and then got out. He did not get any therapy. The height of his boot was higher than his regular shoes and then the hip pain started about 6-10 months ago. Pt rates pain as 1-3/10 over lateral right hip since that time. Pt is taking THC and Advil and they may or may not be helpful. He wears loafers with arches in them in the house. He is taking walks on concrete and the road and that increases pain. Walking on hard surfaces is a problem. Walking on soft surfaces is not a problem. Pt has plantar fasciitis on his right foot. It was before the metatarsal fracture. He has two types hiking boots and he has good walking shoes. Pt states that the toes of both feet get tingly. They have been that way for a long time. It affects his balance. He uses a balance wheel that isn't very effective. Prior Treatments and Tests Pt has never had therapy Right hip x-ray: mild hip OA Treatment Goals Patient/Caregiver Goals To decrease right hip pain PT-OP-C Subjective Start: 04/06/21 14:58 Freq: Status: Active Protocol: Document 05/25/21 09:05 MB (Rec: 05/25/21 09:46 MB [id number]) OP-PT Subjective Patient Comments Patient Comments Pt sees Dr. Burr today. He will ask about his hip. PT-OP-G Mobility & Gait Start: 04/06/21 14:58 Freq: Status: Active Protocol: Document 04/25/21 08:57 MB (Rec: 04/25/21 12:45 MB [id number]) OP Gait Assessment Comments Gait Comments Decreased hip and pelvic movement with bare foot gait and he has no toe push-off either foot and actually has shorter steps with push-off through metatarsals, greater on the left. PT-OP-J Posture/Palpation/Skin Start: 04/06/21 14:58 Freq: Status: Active Protocol: Document 04/25/21 08:57 MB (Rec: 04/25/21 12:45 MB [id number]) Posture Evaluation Comments Posture Comments Standing posture with bare feet: left tragus is 2 in front of left AC joint, right shoulder is lower than the left and left scapula is 1/4 higher than the right. Pt presents with convexity to the right in thoracic spine, left iliac crest is slightly higher than the right, left fifth toe does not touch the floor and is adducted up and over 4th digit, WB right foot is heel to lateral foot. Many toe changes on the left and his 2nd-4th toes on the left do not extend. Pt reports that his shoes were too small in his teenage years and this may have affected his toes. PT-OP-K Range of Motion Start: 04/06/21 14:58 Freq: Status: Active Protocol: Document 04/25/21 08:57 MB (Rec: 04/25/21 12:45 MB [id number]) Hip Goniometric Range of Motion Hip ROM Limitations Comments Passive SLR in supine: right 20 deg and left 35 deg Ankle and Foot Goniometric Range of Motion Ankle and Foot ROM Limitations Comments Limited left ankle DF that does not reach neutral. Pt denies injury. He does appear to have changes at left talus, many toe changes Toe Range of Motion Toes ROM Limitations Comments Many toe changes, greater on the left foot. See postural comments above. No real toe extension through left digits and he has joint changes PT-OP-M Strength Start: 04/06/21 14:58 Freq: Status: Active Protocol: Document 04/25/21 08:57 MB (Rec: 04/25/21 12:45 MB [id number]) Hip Strength Hip Manual Muscle Testing Left Flexion (L2) 4 Good Abduction 3- Fair- Adduction 3 Fair Right Flexion (L2) 4 Good Abduction 3 Fair Adduction 3 Fair Knee Strength Knee Manual Muscle Testing Left Flexion (S2) 5 Normal Extension (L3) 5 Normal Right Flexion (S2) 5 Normal Extension (L3) 5 Normal Ankle/Foot Strength Ankle and Foot Manual Muscle Testing Left Comments MMT not accurate d/t range limitations Right Dorsiflexion (L4) 5 Normal Inversion 4 Good Eversion (S1) 4 Good Toe Strength Toe Manual Muscle Testing Left Great Toe Extension 3 Fair Right Great Toe Extension 4 Good PT-OP-Q Treatments Start: 04/06/21 14:58 Freq: Status: Active Protocol: Document 05/25/21 09:05 MB (Rec: 05/25/21 09:46 MB [id number]) Therapeutic Exercises Supine Exercises TA SLR Comments Remove exercise from program clamshell Side bilateral Equipment Used Level 2 band Reps/Minutes 10 reps slowly Comments Spine flat, pelvic tilt and core tight, glutes contracted Hip rotator stretch Side bilateral Comments 30 sec hold B Hamstring stretch Side bilateral Comments Opposite leg straight and AP stretching leg Abdominal drawing in with pelvic tilt Comments Performed before Augustus stretch Augustus stretch Side bilateral Comments Cues to perform abdominal drawing in first, core tight, 30 rep hold Pelvic realigment exercises Side bilateral Comments 5 reps, 3 sec hold all exercises PT-OP-T Assessment and Plan Start: 04/06/21 14:58 Freq: Status: Active Protocol: Document 05/25/21 09:05 MB (Rec: 05/25/21 09:46 MB [id number]) Physical Therapy Assessment Goals 3 Half-Way Goal (LTG) Pt will perform progressive HEP with I including flexiblity, pelvic realignment , strengthening and balance exercises to improve pain and balance by 06/25/21. LTG Duration 8 weeks 2 Half-Way Goal (LTG) Pt will perform WNLs on a standardized balance test to decrease fall risk by 06/25/21 . LTG Duration 8 weeks 1 Half-Way Goal (LTG) Pt will report an 80% improvement in right lateral hip pain to improve quality of life by 06/25/21. LTG Duration 8 weeks Assessment Summary Assessment Pt does not feel that his right hip pain is better yet. He has had 5 PT treatments after the eval. He is following up with Dr. Burr today will discuss about ortho consult. He is agreeable to 4 more PT treatments to progres flexibility, strengthening and balance. PT does not favor cortisone injection in setting of degenerative cartilaginous disease (mild OA ). See plan below for next PT treatment. Physical Therapy Plan Frequency and Duration Frequency of Treatment 1-2x/wk Duration of Treatment 8 weeks Plan of Care Start Date 04/25/21 Plan of Care End Date 06/25/21 Therapeutic Interventions Therapeutic Interventions Balance Training,Canalithic Repositioning,Gait Training, Home Exercise Program,Joint Mobilizations,Manual Therapy, Neuromuscular Re-education, Patient/Caregiver Education, Self-Care/Home Management,Soft Tissue Mobilization, Therapeutic Activities, Therapeutic Exercises Modalities Cold Pack/Ice Massage,Hot Packs Other Referrals/Consults Referrals/Consults Recommended Ortho consult Next Visit Focus/Plan Next Note Type Treatment Note Next Visit Plan Core progression, hip strengthening in standing, manual work
--- NOTE | 2021-06-01 09:40 | PT.OTN ---
Current Diagnoses Unilateral primary osteoarthritis, right hip (06/01/21) Trochanteric bursitis, right hip (06/01/21) Physical Therapy Treatment Note PT-OP-A Visit Information Start: 04/06/21 14:58 Freq: Status: Active Protocol: Document 06/01/21 09:00 MB (Rec: 06/01/21 09:40 MB [id number]) Out-Patient Physical Therapy Visit Information Visit Information Visit Type Treatment Note Visit Note Medicare 03/14 before KX Visit Start Time 09:00 Visit Stop Time 09:39 Total Visit Minutes 39 Visit Number 7 Evaluation Information Evaluation Date 04/25/21 PT-OP-B Current Condition Start: 04/06/21 14:58 Freq: Status: Active Protocol: Document 04/25/21 08:57 MB (Rec: 04/25/21 09:11 MB [id number]) Current Condition History of Current Condition Onset Date 6-10 months ago Current Complaints Right lateral hip pain over trochanter History of Current Condition Pt reports that he broke a metatarsal bone in his right foot about a year ago. He was in a boot and then got out. He did not get any therapy. The height of his boot was higher than his regular shoes and then the hip pain started about 6-10 months ago. Pt rates pain as 1-3/10 over lateral right hip since that time. Pt is taking THC and Advil and they may or may not be helpful. He wears loafers with arches in them in the house. He is taking walks on concrete and the road and that increases pain. Walking on hard surfaces is a problem. Walking on soft surfaces is not a problem. Pt has plantar fasciitis on his right foot. It was before the metatarsal fracture. He has two types hiking boots and he has good walking shoes. Pt states that the toes of both feet get tingly. They have been that way for a long time. It affects his balance. He uses a balance wheel that isn't very effective. Prior Treatments and Tests Pt has never had therapy Right hip x-ray: mild hip OA Treatment Goals Patient/Caregiver Goals To decrease right hip pain PT-OP-C Subjective Start: 04/06/21 14:58 Freq: Status: Active Protocol: Document 06/01/21 09:00 MB (Rec: 06/01/21 09:40 MB [id number]) OP-PT Subjective Patient Comments Patient Comments Pt saw Dr. Burr who stated that he does have OA. He was told that OA pain is anteromedial and trochanteric bursitis pain is lateral, where is pain is. He was prescribed Voltaren and decided not to get an injection. He was told to call back if he would like a referral to a surgeon. PT-OP-G Mobility & Gait Start: 04/06/21 14:58 Freq: Status: Active Protocol: Document 04/25/21 08:57 MB (Rec: 04/25/21 12:45 MB [id number]) OP Gait Assessment Comments Gait Comments Decreased hip and pelvic movement with bare foot gait and he has no toe push-off either foot and actually has shorter steps with push-off through metatarsals, greater on the left. PT-OP-J Posture/Palpation/Skin Start: 04/06/21 14:58 Freq: Status: Active Protocol: Document 04/25/21 08:57 MB (Rec: 04/25/21 12:45 MB [id number]) Posture Evaluation Comments Posture Comments Standing posture with bare feet: left tragus is 2 in front of left AC joint, right shoulder is lower than the left and left scapula is 1/4 higher than the right. Pt presents with convexity to the right in thoracic spine, left iliac crest is slightly higher than the right, left fifth toe does not touch the floor and is adducted up and over 4th digit, WB right foot is heel to lateral foot. Many toe changes on the left and his 2nd-4th toes on the left do not extend. Pt reports that his shoes were too small in his teenage years and this may have affected his toes. PT-OP-K Range of Motion Start: 04/06/21 14:58 Freq: Status: Active Protocol: Document 04/25/21 08:57 MB (Rec: 04/25/21 12:45 MB [id number]) Hip Goniometric Range of Motion Hip ROM Limitations Comments Passive SLR in supine: right 20 deg and left 35 deg Ankle and Foot Goniometric Range of Motion Ankle and Foot ROM Limitations Comments Limited left ankle DF that does not reach neutral. Pt denies injury. He does appear to have changes at left talus, many toe changes Toe Range of Motion Toes ROM Limitations Comments Many toe changes, greater on the left foot. See postural comments above. No real toe extension through left digits and he has joint changes PT-OP-M Strength Start: 04/06/21 14:58 Freq: Status: Active Protocol: Document 04/25/21 08:57 MB (Rec: 04/25/21 12:45 MB [id number]) Hip Strength Hip Manual Muscle Testing Left Flexion (L2) 4 Good Abduction 3- Fair- Adduction 3 Fair Right Flexion (L2) 4 Good Abduction 3 Fair Adduction 3 Fair Knee Strength Knee Manual Muscle Testing Left Flexion (S2) 5 Normal Extension (L3) 5 Normal Right Flexion (S2) 5 Normal Extension (L3) 5 Normal Ankle/Foot Strength Ankle and Foot Manual Muscle Testing Left Comments MMT not accurate d/t range limitations Right Dorsiflexion (L4) 5 Normal Inversion 4 Good Eversion (S1) 4 Good Toe Strength Toe Manual Muscle Testing Left Great Toe Extension 3 Fair Right Great Toe Extension 4 Good PT-OP-Q Treatments Start: 04/06/21 14:58 Freq: Status: Active Protocol: Document 06/01/21 09:00 MB (Rec: 06/01/21 09:40 MB [id number]) Therapeutic Exercises Supine Exercises Core progression Supine Exercise Name Abdominal drawing in, knee rocking, HS, mini march, bridge with band Side bilateral Equipment Used Level 1 band around knees Comments Knee fall out, 5-10 reps all Augustus stretch Side bilateral Comments Abdominal drawing in, 30 sec hold B Standing Exercises Backwards and crab walking with band Side bilateral Reps/Minutes Level 1 band around ankles PT-OP-T Assessment and Plan Start: 04/06/21 14:58 Freq: Status: Active Protocol: Document 06/01/21 09:00 MB (Rec: 06/01/21 09:40 MB [id number]) Physical Therapy Assessment Goals 3 Usp Goal (LTG) Pt will perform progressive HEP with I including flexiblity, pelvic realignment , strengthening and balance exercises to improve pain and balance by 06/25/21. LTG Duration 8 weeks 2 Usp Goal (LTG) Pt will perform WNLs on a standardized balance test to decrease fall risk by 06/25/21 . LTG Duration 8 weeks 1 Auditor Internal Goal (LTG) Pt will report an 80% improvement in right lateral hip pain to improve quality of life by 06/25/21. LTG Duration 8 weeks Assessment Summary Assessment Pt reports that right hip pain is better since he started using Voltaren. Progressed core and hip strengthening today. Anticipate d/c next treatment date. Physical Therapy Plan Frequency and Duration Frequency of Treatment 1-2x/wk Duration of Treatment 8 weeks Plan of Care Start Date 04/25/21 Plan of Care End Date 06/25/21 Therapeutic Interventions Therapeutic Interventions Balance Training,Canalithic Repositioning,Gait Training, Home Exercise Program,Joint Mobilizations,Manual Therapy, Neuromuscular Re-education, Patient/Caregiver Education, Self-Care/Home Management,Soft Tissue Mobilization, Therapeutic Activities, Therapeutic Exercises Modalities Cold Pack/Ice Massage,Hot Packs Other Referrals/Consults Referrals/Consults Recommended Ortho consult Next Visit Focus/Plan Next Note Type Discharge Summary Next Visit Plan Exercise review if needed
--- NOTE | 2021-06-23 08:38 | PT.OTN ---
Current Diagnoses Unilateral primary osteoarthritis, right hip (06/23/21) Trochanteric bursitis, right hip (06/23/21) Physical Therapy Treatment Note PT-OP-A Visit Information Start: 04/06/21 14:58 Freq: Status: Active Protocol: Document 06/23/21 08:15 MB (Rec: 06/23/21 08:38 MB [id number]) Out-Patient Physical Therapy Visit Information Visit Information Visit Type Treatment Note Visit Note Medicare 04/14 before KX Visit Start Time 08:15 Visit Stop Time 08:38 Total Visit Minutes 23 Visit Number 8 Evaluation Information Evaluation Date 04/25/21 PT-OP-B Current Condition Start: 04/06/21 14:58 Freq: Status: Active Protocol: Document 04/25/21 08:57 MB (Rec: 04/25/21 09:11 MB [id number]) Current Condition History of Current Condition Onset Date 6-10 months ago Current Complaints Right lateral hip pain over trochanter History of Current Condition Pt reports that he broke a metatarsal bone in his right foot about a year ago. He was in a boot and then got out. He did not get any therapy. The height of his boot was higher than his regular shoes and then the hip pain started about 6-10 months ago. Pt rates pain as 1-3/10 over lateral right hip since that time. Pt is taking THC and Advil and they may or may not be helpful. He wears loafers with arches in them in the house. He is taking walks on concrete and the road and that increases pain. Walking on hard surfaces is a problem. Walking on soft surfaces is not a problem. Pt has plantar fasciitis on his right foot. It was before the metatarsal fracture. He has two types hiking boots and he has good walking shoes. Pt states that the toes of both feet get tingly. They have been that way for a long time. It affects his balance. He uses a balance wheel that isn't very effective. Prior Treatments and Tests Pt has never had therapy Right hip x-ray: mild hip OA Treatment Goals Patient/Caregiver Goals To decrease right hip pain PT-OP-C Subjective Start: 04/06/21 14:58 Freq: Status: Active Protocol: Document 06/23/21 08:15 MB (Rec: 06/23/21 08:38 MB [id number]) OP-PT Subjective Patient Comments Patient Comments Pt reports no pain since he has started the Voltaren in the morning and night-time right over the lateral right hip. He also thinks that exercises are helpful. PT-OP-G Mobility & Gait Start: 04/06/21 14:58 Freq: Status: Active Protocol: Document 04/25/21 08:57 MB (Rec: 04/25/21 12:45 MB [id number]) OP Gait Assessment Comments Gait Comments Decreased hip and pelvic movement with bare foot gait and he has no toe push-off either foot and actually has shorter steps with push-off through metatarsals, greater on the left. PT-OP-J Posture/Palpation/Skin Start: 04/06/21 14:58 Freq: Status: Active Protocol: Document 04/25/21 08:57 MB (Rec: 04/25/21 12:45 MB [id number]) Posture Evaluation Comments Posture Comments Standing posture with bare feet: left tragus is 2 in front of left AC joint, right shoulder is lower than the left and left scapula is 1/4 higher than the right. Pt presents with convexity to the right in thoracic spine, left iliac crest is slightly higher than the right, left fifth toe does not touch the floor and is adducted up and over 4th digit, WB right foot is heel to lateral foot. Many toe changes on the left and his 2nd-4th toes on the left do not extend. Pt reports that his shoes were too small in his teenage years and this may have affected his toes. PT-OP-K Range of Motion Start: 04/06/21 14:58 Freq: Status: Active Protocol: Document 04/25/21 08:57 MB (Rec: 04/25/21 12:45 MB [id number]) Hip Goniometric Range of Motion Hip ROM Limitations Comments Passive SLR in supine: right 20 deg and left 35 deg Ankle and Foot Goniometric Range of Motion Ankle and Foot ROM Limitations Comments Limited left ankle DF that does not reach neutral. Pt denies injury. He does appear to have changes at left talus, many toe changes Toe Range of Motion Toes ROM Limitations Comments Many toe changes, greater on the left foot. See postural comments above. No real toe extension through left digits and he has joint changes PT-OP-M Strength Start: 04/06/21 14:58 Freq: Status: Active Protocol: Document 04/25/21 08:57 MB (Rec: 04/25/21 12:45 MB [id number]) Hip Strength Hip Manual Muscle Testing Left Flexion (L2) 4 Good Abduction 3- Fair- Adduction 3 Fair Right Flexion (L2) 4 Good Abduction 3 Fair Adduction 3 Fair Knee Strength Knee Manual Muscle Testing Left Flexion (S2) 5 Normal Extension (L3) 5 Normal Right Flexion (S2) 5 Normal Extension (L3) 5 Normal Ankle/Foot Strength Ankle and Foot Manual Muscle Testing Left Comments MMT not accurate d/t range limitations Right Dorsiflexion (L4) 5 Normal Inversion 4 Good Eversion (S1) 4 Good Toe Strength Toe Manual Muscle Testing Left Great Toe Extension 3 Fair Right Great Toe Extension 4 Good PT-OP-Q Treatments Start: 04/06/21 14:58 Freq: Status: Active Protocol: Document 06/23/21 08:15 MB (Rec: 06/23/21 08:38 MB [id number]) Therapeutic Exercises Supine Exercises Core progression Comments Reviewed today in prep for d/c clamshell Comments Reviewed today in prep for d/c Hip rotator stretch Comments Reviewed today in prep for d/c Hamstring stretch Comments Reviewed today in prep for d/c Augustus stretch Comments Reviewed today in prep for d/c Pelvic realigment exercises Comments Reviewed today in prep for d/c Sitting Exercises pirformis stretch Comments Reviewed today in prep for d/c Use of rolling pin for self massage Comments Not performing at home Standing Exercises Balance exercise in corner Comments Romberg with EC and head turns Backwards and crab walking with band Comments Reviewed today in prep for d/c . PT demo keeping straight ahead self massage ball on wall Comments Not as helpful, so will d/c PT-OP-T Assessment and Plan Start: 04/06/21 14:58 Freq: Status: Active Protocol: Document 06/23/21 08:15 MB (Rec: 06/23/21 08:38 MB [id number]) Physical Therapy Assessment Goals 3 Skilled Nursing Goal (LTG) Pt will perform progressive HEP with I including flexiblity, pelvic realignment , strengthening and balance exercises to improve pain and balance by 06/25/21. 06/23/21: Clams, pelvic realignment exercises, hamstring stretch with AP, Augustus stretch, piriformis stretch, core progression, crab and backwards walking, balance exercises, LTG Duration Met 2 Skilled Nursing Goal (LTG) Pt will perform WNLs on a standardized balance test to decrease fall risk by 06/25/21 . 06/23/21: Pt performs his Romberg exercises with head turns and eyes closed LTG Duration Met 1 [employer] Out[employer] Supervisor Goal (LTG) Pt will report an 80% improvement in right lateral hip pain to improve quality of life by 06/25/21. 06/23/21: Pt reports 80% improvement in right lateral hip pain LTG Duration Met Assessment Summary Assessment The Voltaren gel that Dr. Burr recommended really helped the lateral right hip pain. Pt has met all PT goals since starting PT. These include pain, HEP and balance goals. He does have some challenge with head turns to the right with Romberg and he will con't to work at home. Will d/c PT.
== END 2021-07-07 12:39 ==
LOC: PHYS 08:15
PROVIDERS: Family Provider Family Medicine; PCP Family Medicine; Referring Provider Family Medicine; Visit Provider Family Medicine
DX: M16.11 Unilateral primary osteoarthritis, right hip (principal); M70.61 Trochanteric bursitis, right hip
CPT/HCPCS: 97110; 97112; 97140; 97161; 97535

== ENCOUNTER → 2021-12-05 09:04 | Outpatient (CLI) | payer MEDICARE, SELFPAY ==
[2021-12-05 10:38] LABS: COVID19 -Nasal RAPID Negative (Negative)
== END ==
PROVIDERS: Family Provider Family Medicine; PCP Family Medicine; Visit Provider Surgery
DX: Z01.812 Encounter for preprocedural laboratory examination (principal); Z20.822 Contact with and (suspected) exposure to COVID-19
CPT/HCPCS: 87635; C9803

== ENCOUNTER 2021-12-06 07:30 | Day surgery (SDC) | payer MEDICARE, SELFPAY ==
[2021-12-06] VITALS (7 sets, daily range): BP systolic 138–180; BP diastolic 76–92; PULSE 54–64; RESP 9–18; TEMP 36.3–36.4; O2SAT 91–98; BMI 25.1
--- NOTE | 2021-12-06 | PATH_ITS ---
[facility] Accession Number: [id number] . 01 Material submitted: . colon - DESCENDING COLON POLYP . 02 Diagnosis: Descending Colon, Polyp, Biopsy: Colonic mucosa with a small benign lymphoid aggregate and no other diagnostic abnormality. Additional levels were examined. Negative for dysplasia and malignancy. [facility] 12/09/2021 1701 Local . 02 Electronically signed: . Irma Winkler MD, Pathologist NPI- [id number] . 01 Gross description: . DESCENDING COLON POLYP: Received in formalin is 1 fragment(s) of alejandro, soft tissue measuring 0.2 x 0.1 x 0.1 cm submitted entirely in 1 cassette(s) /CPE 12/07/2021 0825 Local . 02 Pathologist provided ICD-10: K63.5 . 02 CPT . 426974 Specimen Comment: A courtesy copy of this report has been sent to [phone] Performed at: 01 [facility] [address], [place], [place] [id number] MD Agapito Ma MD Phone: [phone] Performed at: 02 [facility] [address] [place], [place] [id number] MD Irma Winkler MD Phone: [phone]
[2021-12-06] MEDS: LACTATED RINGERS 1,000 ML 200 ML IV (07:56)
--- NOTE | 2021-12-06 08:12 | PM.HP.1 ---
History of Present Illness History of Present Illness Date Patient Seen: 12/06/21 Time Patient Seen: 08:12 Chief complaint: SCREENING COLONOSCOPY Narrative: The patient presents for colorectal sreening. He has a personal history of colonic polyps. Last colonoscopy 5 years ago significant for polyps. No personal or family history of colon cancer. On further history denies any recent gastrointestinal symptoms. No nausea, vomiting, abdominal pain, loss of appetite, unexplained weight loss, change in bowel habits, diarrhea, constipation, melena, hematochezia, or bright red blood per rectum. Patient History Medical History Constipation History of migraine Osteoarthritis of right hip Primary hypertension Surgical History H/O oral surgery History of appendectomy Family & Social History Social History: household members spouse Tobacco & Substance use: Smoking Status Former smoker alcohol intake current alcohol intake frequency 0-2 drinks per day Substance Use Type does not use Meds Home Medications and Allergies Home Medications Medication Instructions Recorded Confirmed Type losartan 25 mg tablet 75 mg PO DAILY tab 11/21/19 12/06/21 History cartilage 40 mg-collagen II 10 1 tab PO DAILY 03/28/21 12/06/21 History mg-boron 5 mg-hyaluronate 3.3 mg tablet ([employer]) cholecalciferol (vitamin D3) 50 50 mcg PO DAILY 03/28/21 12/06/21 History mcg (2,000 unit) capsule docusate sodium 100 mg capsule 100 mg PO DAILY 03/28/21 12/06/21 History (Stool Softener) ibuprofen 200 mg tablet (Advil) 200 mg PO .PRN tab 03/28/21 12/06/21 History magnesium 250 mg tablet 250 mg PO DAILY 03/28/21 12/06/21 History mecobalamin (vitamin B12) 5,000 3,000 mcg PO DAILY ea 03/28/21 12/06/21 History mcg lozenge omega-3 fatty acids 1,000 mg 2,000 mg PO DAILY cap 03/28/21 12/06/21 History capsule Allergies Allergy/AdvReac Type Severity Reaction Status Date / Time No Known Drug Allergies Allergy Verified 12/06/21 07:40 Exam Vital Signs (past 8 hours): - 12/06/21 07:57 Temperature 97.3 F L Pulse Rate 61 Respiratory Rate 16 Blood Pressure 180/89 H Pulse Oximetry 98 Oxygen Delivery Method Room Air Narrative Exam Narrative: GENERAL: Adult male in no apparent distress HEENT: No scleral icterus CV: Regular rate, no peripheral edema LUNGS: No increased work of breathing. Patient speaks in full sentences without oxygen support. ABDOMEN: Soft, non-tender, non-distended NEURO: Nonfocal, normal strength throughout, SKIN: Warm and dry Assessment & Plan Assessment and plan (1) Personal history of colonic polyps: Status: Acute Assessment & Plan narrative: The patient requires colorectal screening and colonoscopy is recommended. Technical details were discussed. Risks, benefits, alternatives explained. Risks including but not limited to myocardial infarction, aspiration, bleeding, pain, missed lesion, incomplete examination, need for further radiographic studies, colonic perforation, and need for major abdominal surgery were discussed. All questions were answered to their satisfaction, and they are in agreement with this plan. Time Spent With Patient Critical Care time: I spent a total of [] minutes of critical care time on this patient's care today; this time is exclusive of procedural time.
[2021-12-06] MEDS: MIDAZOLAM 5 MG/5 ML VIAL IV (08:21)
[2021-12-06] MEDS: fentaNYL 250 MCG/5 ML INJ IV (08:22)
--- NOTE | 2021-12-06 08:44 | P.OP.COLON_ITS ---
Operative Date/Time/Diagnoses Date of procedure: 12/06/21 Time of procedure: 08:44 Pre-op diagnosis: personal history of colonic polyps Post-op diagnosis: same Procedure & Clinicians Study performed: colonoscopy and polypectomy Same procedure as scheduled: Yes Indications: personal history of colonic polyps Surgeon: Juan Diego Sanchez Procedure Notes Procedure in detail: Medications: Conscious sedation using 5mg IV midazolam and 150mcg IV of f entanyl The history and physical was performed/updated and the patient is ASA class is 2. The procedure was discussed in detail with the patient. Potential risks complications including infection, bleeding, missed diagnosis, perforation, need for surgery, and were explained. Their questions were answered and informed consent was obtained. Patient was brought to the procedure room and placed standard monitoring equipment. The patient's vital signs were monitored continuously throughout the entire procedure. Prior to starting time-out was performed. The patient was placed in the left lateral recumbent position. Procedural sedation was administered. Examination began with a thorough inspection of the perianal area there was no evidence of fissures, fistulae, external hemorrhoids or cutaneous malignancy. The colonoscopy scope was then placed into the anal canal and was advanced to the cecum, which was identified by the ileocecal valve, the appendiceal orifice and the confluence of the taenia. The scope was then slowly withdrawn examining colon thoroughly in all directions, irrigating it of any residual stool. FINDINGS 1. Descending colon-3 mm polyp removed with biopsy forceps 2. Quality of prep -fair The patient tolerated the procedure well. They will be discharged once criteria are met. The withdrawl time was 7 minutes. The sedation time was 23 minutes . Specimen(s): other (Descending colon) Complications: none Impression: Colonic polyp Post-procedure Recommendations: Colonoscopy in 5 years Disposition: same day surgery
[2021-12-06] MEDS: ONDANSETRON 4 MG/2 ML INJ IV (08:47)
== END 2021-12-06 09:34 | disposition home or self-care (01) ==
PROVIDERS: Family Provider Family Medicine; PCP Family Medicine; Referring Provider Surgery; Visit Provider Surgery
PROC: 0DJD8ZZ Inspection of Lower Intestinal Tract, Via Natural or Artificial Opening Endoscopic (ICD-10-PCS; CPT 45378; principal; 2021-12-06 08:30)
DX: Z12.11 Encounter for screening for malignant neoplasm of colon (principal); Z86.010 Personal history of colon polyps; K63.5 Polyp of colon
CPT/HCPCS: 45380; 99152; J2250; J2405; J3010

== ENCOUNTER → 2022-09-25 08:12 | Outpatient (CLI) | payer MEDICARE, SELFPAY ==
[2022-09-25 08:52] LABS: Add Manual Diff / Slide Review NO; Basophils Absolute Auto 0 /uL (0-100); Basophils Percent Auto 0.5 % (0-2); Eosinophils Absolute Auto 300 /uL (0-450); Eosinophils Percent Auto 4.2 % (2-4); Hematocrit 41.9 % (41-53); Hemoglobin 14.4 g/dL (13.5-17.5); Lymphocytes Absolute Auto 1900 /uL (1100-4500); Lymphocytes Percent Auto 28.6 % (25-40); Mean Corpuscular HGB Conc 34.3 % (30-36); Mean Corpuscular Hemoglobin 34.2 PG (26-34); Mean Corpuscular Volume 99.7 fL (80-100); Monocytes Absolute Auto 800 /uL (0-900); Monocytes Percent Auto 12.6 % (3-14); Neutrophils Absolute Auto 3500 /uL (1500-7000); Neutrophils Percent Auto 54.1 % (50-75); Platelet Count 169 X10^3/uL (150-400); Red Cell Distribution Width 13.1 % (11.6-14.8); White Blood Cell Count 6.6 X10^3/uL (4.5-11.0)
[2022-09-25 09:08] LABS: Alanine Aminotransferase 21 IU/L (<50); Albumin 4.2 g/dL (3.5-5.0); Albumin Globulin Ratio 1.3 (1.0-2.8); Alkaline Phosphatase 106 U/L (38-126); Aspartate Aminotransferase 36 IU/L (17-59); BUN Creatinine Ratio 16.2 (6-22); Bilirubin Total 0.6 mg/dL (0.2-1.3); Blood Urea Nitrogen 16 mg/dL (9-20); Calcium 9.1 mg/dL (8.4-10.2); Carbon Dioxide 22 mmol/L (22-32); Chloride 105 mmol/L (98-107); Cholesterol 220 mg/dL (140-199); Estimated Glomerular Filt Rate > 60 mL/min (>60); Globulin 3.3 g/dL (1.7-4.1); Glucose 83 mg/dL (80-110); HDL Cholesterol 106 mg/dL (40-60); HEMOLYSIS < 15 (0-50); LDL Cholesterol Calculated 101 mg/dL (<100); Potassium 4.1 mmol/L (3.4-5.1); Sodium 137 mmol/L (137-145); Total Protein 7.5 g/dL (6.3-8.2); Triglycerides 64 mg/dL (35-150)
[2022-09-25 09:35] LABS: Prostate Specific Antigen Scrn 2.11 ng/mL (0.1-4.0)
[2022-09-25 09:38] LABS: TSH w/ Reflex to FT4 1.25 uIU/mL (0.47-4.68)
[2022-09-25 09:54] LABS: Vitamin B12 > 1000 pg/mL (239-931)
[2022-09-25 11:53] LABS: Creatinine Urine Random 136.9 mg/dL
[2022-09-25 11:58] LABS: Microalbumi Creatinin Ratio Ur 10.2 ug/mg CR (<30); Microalbumin Urine Random 1.4 mg/dL (0-1.6)
== END ==
PROVIDERS: Family Provider Family Medicine; PCP Family Medicine; Referring Provider Family Medicine; Visit Provider Family Medicine
DX: D75.89 Other specified diseases of blood and blood-forming organs (principal); I10 Essential (primary) hypertension; Z12.5 Encounter for screening for malignant neoplasm of prostate; M16.11 Unilateral primary osteoarthritis, right hip
CPT/HCPCS: 36415; 80053; 80061; 82043; 82570; 82607; 84443; 85025; G0103

== ENCOUNTER → 2023-03-27 12:25 | Outpatient (CLI) | payer MEDICARE, SELFPAY ==
--- NOTE | 2023-03-27 12:26 | DI.RAD.S_ITS ---
PROCEDURE: XR FOOT LT MIN 3V INDICATIONS: left lateral foot pain at MTP 5th toe TECHNIQUE: 3 views of the foot were acquired. COMPARISON: [facility], CR, XR FOOT RT MIN 3V, 11/21/2019, 8:38. FINDINGS: Bones: There is a nondisplaced lucency at the base of the 5th proximal phalanx shaft.. No suspicious bony lesions. IP degenerative changes are present. Soft tissues: No tibiotalar joint effusion. Achilles tendon appears normal. IMPRESSION: Nondisplaced proximal phalanx lucency most suggestive nondisplaced fracture Dictated by: Aline Pelayo M.D. on 03/27/2023 at 17:14 Approved by: Aline Pelayo M.D. on 03/27/2023 at 17:15
== END ==
PROVIDERS: Family Provider Family Medicine; PCP Family Medicine; Referring Provider Physician Assistant; Visit Provider Physician Assistant
DX: M79.672 Pain in left foot (principal)
CPT/HCPCS: 73630

== ENCOUNTER → 2023-09-03 09:51 | Outpatient (CLI) | payer MEDICARE, SELFPAY ==
[2023-09-03 11:17] LABS: Add Manual Diff / Slide Review NO; Basophils Absolute Auto 100 /uL (0-100); Basophils Percent Auto 1.3 % (0-2); Eosinophils Absolute Auto 200 /uL (0-450); Eosinophils Percent Auto 4.7 % (2-4); Hematocrit 43.1 % (41-53); Hemoglobin 14.8 g/dL (13.5-17.5); Lymphocytes Absolute Auto 1700 /uL (1100-4500); Lymphocytes Percent Auto 35.5 % (25-40); Mean Corpuscular HGB Conc 34.4 % (30-36); Mean Corpuscular Hemoglobin 35.4 PG (26-34); Mean Corpuscular Volume 102.8 fL (80-100); Monocytes Absolute Auto 600 /uL (0-900); Neutrophils Absolute Auto 2200 /uL (1500-7000); Neutrophils Percent Auto 46.5 % (50-75); Platelet Count 176 X10^3/uL (150-400); Red Cell Distribution Width 13.4 % (11.6-14.8); White Blood Cell Count 4.8 X10^3/uL (4.5-11.0)
[2023-09-03 11:45] LABS: Alanine Aminotransferase 39 IU/L (<50); Albumin 4.2 g/dL (3.5-5.0); Albumin Globulin Ratio 1.2 (1.0-2.8); Alkaline Phosphatase 76 U/L (38-126); Aspartate Aminotransferase 54 IU/L (17-59); BUN Creatinine Ratio 15.9 (6-22); Bilirubin Total 0.8 mg/dL (0.2-1.3); Blood Urea Nitrogen 18 mg/dL (9-20); Carbon Dioxide 30 mmol/L (22-32); Chloride 100 mmol/L (98-107); Cholesterol 228 mg/dL (140-199); Estimated Glomerular Filt Rate > 60 mL/min (>60); Globulin 3.5 g/dL (1.7-4.1); Glucose 88 mg/dL (80-110); HDL Cholesterol 102 mg/dL (40-60); HEMOLYSIS < 15 (0-50); LDL Cholesterol Calculated 106 mg/dL (<100); Potassium 4.6 mmol/L (3.4-5.1); Sodium 136 mmol/L (137-145); Total Protein 7.7 g/dL (6.3-8.2); Triglycerides 102 mg/dL (35-150)
[2023-09-03 12:10] LABS: Prostate Specific Antigen Scrn 2.55 ng/mL (0.1-4.0)
[2023-09-03 12:11] LABS: TSH w/ Reflex to FT4 1.33 uIU/mL (0.47-4.68)
== END ==
PROVIDERS: Family Provider Family Medicine; PCP Family Medicine; Referring Provider Family Medicine; Visit Provider Family Medicine
DX: Z12.5 Encounter for screening for malignant neoplasm of prostate (principal); Z13.220 Encounter for screening for lipoid disorders; Z12.11 Encounter for screening for malignant neoplasm of colon; D75.89 Other specified diseases of blood and blood-forming organs; I10 Essential (primary) hypertension
CPT/HCPCS: 36415; 80053; 80061; 84443; 85025; G0103

== ENCOUNTER 2023-09-21 19:39 | Emergency (ER) | payer MEDICARE, SELFPAY ==
[2023-09-21 19:55] VITALS: BP 156/90; PULSE 83; RESP 14; TEMP 36.6; O2SAT 96; BMI 25.1
--- NOTE | 2023-09-21 20:06 | DI.CT.S_ITS ---
PROCEDURE: CT ABDOMEN PELVIS W CON INDICATIONS: painless gross hematuria x1 day TECHNIQUE: After the administration of intravenous contrast, axial sections acquired from the lung bases to the pubic symphysis. Coronal and sagittal reformats were performed. For radiation dose reduction, the following was used: automated exposure control, adjustment of mA and/or kV according to patient size. COMPARISON: None. FINDINGS: Image quality: Diagnostic. Lower Chest: No significant findings. There is a small subpleural lipoma in the left lung base. Small hiatal hernia. There is concentric thickening at the GE junction. ABDOMEN: Liver: No solid mass. There are a couple of cysts in liver. Normal size. Mild hepatic steatosis. Gallbladder: No radiopaque gallstones or wall thickening. Biliary ducts: No biliary dilation. Pancreas: No ductal dilation. Spleen: Size is within normal limits. Adrenal Glands: No adrenal nodules. Kidneys and Ureters: No hydronephrosis. No solid mass. No complex renal cystic lesion which requires follow up. Stomach and Bowel: Normal colonic caliber, without significant wall thickening. A large amount of stool in colon Peritoneum: No abnormal intraperitoneal fluid. No free air. Ventral Wall: No hernia. Abdominal Nodes: No retroperitoneal or mesenteric adenopathy by size criteria. Vessels: Aorta and inferior vena cava are normal in size. PELVIS: Pelvic Organs: Unremarkable. Bladder: Unremarkable. Pelvic Nodes: No enlarged lymph nodes. Miscellaneous: No inguinal hernias are seen. Bones: Chronic compression fracture of L1 and L2. Bxfyodnu-mr-vzpybn spondylitic changes in lumbar spine. IMPRESSION: 1. There is a mass in the bladder base measuring 1.7 x 2.8 cm, suspicious for uroepithelial neoplasm. 2. There is mild right hydronephrosis. The mass involves the ureterovesical junction. 3. No findings to suggest taisha or distant metastasis. 4. Small hiatal hernia. There is mild concentric thickening at the gastroesophageal junction. The finding may be related to gastroesophageal reflux. Dictated by: Giovanni Robin M.D. on 09/21/2023 at 22:35 Approved by: Giovanni Robin M.D. on 09/21/2023 at 22:40
--- NOTE | 2023-09-21 20:06 | ED.MALEGU ---
HPI - Male Genitourinary General Chief complaint: Urogenital-Male Stated complaint: blood in urine/ABD Pain Time Seen by Provider: 09/21/23 19:50 History of Present Illness HPI Narrative: 72-year-old male presents for episode of painless hematuria this evening. Patient states that he went to use the restroom and noticed that his urine was dark red, however by the end of the stream it had cleared up and returned to normal color. Reports 1 week of vague intermittent right lower quadrant abdominal pain that is improved with Tylenol. Denies use of blood thinners. Previous appendectomy Related Data Home Medications Medication Instructions Recorded Confirmed cartilage 40 mg-collagen II 10 1 tab PO DAILY 03/28/21 07/05/23 mg-boron 5 mg-hyaluronate 3.3 mg tablet ([employer]) cholecalciferol (vitamin D3) 50 50 mcg PO DAILY 03/28/21 07/05/23 mcg (2,000 unit) capsule docusate sodium 100 mg capsule 100 mg PO DAILY 03/28/21 07/05/23 (Stool Softener) magnesium 250 mg tablet 250 mg PO DAILY 03/28/21 07/05/23 mecobalamin (vitamin B12) 5,000 3,000 mcg PO DAILY 03/28/21 07/05/23 mcg lozenge Previous Rx's Medication Instructions Recorded losartan 50 mg tablet 75 mg (1.5 x 50 mg) PO DAILY #135 07/05/23 tabs Allergies Allergy/AdvReac Type Severity Reaction Status Date / Time No Known Drug Allergies Allergy Verified 07/05/23 14:54 Review of Systems Review of Systems Narrative: See HPI Patient History Medical History History of migraine Constipation Osteoarthritis of right hip Primary hypertension Surgical History H/O oral surgery History of appendectomy Social History household members: spouse Smoking Status: Former smoker alcohol intake: current Smoking Status: Former smoker alcohol intake frequency: 0-2 drinks per day Substance Use Type: does not use Exam Initial Vital Signs Initial Vital Signs: Vital Signs Temperature 97.9 F 09/21/23 19:55 Pulse Rate 83 09/21/23 19:55 Respiratory Rate 14 09/21/23 19:55 Blood Pressure 156/90 H 09/21/23 19:55 Pulse Oximetry 96 09/21/23 19:55 Oxygen Delivery Method Room Air 09/21/23 19:55 Const: Awake, alert, no acute distress, nontoxic appearing Cardiac: regular rate, regular rhythm RESP: unlabored, clear bilaterally, no wheezing GI: Atraumatic, soft, nontender, nondistended, no rebound, no guarding MSK: Atraumatic, full range of motion, pulses equal, no CVA tenderness Skin: Warm, Dry, intact, no rashes Neuro: AO x3, CN II-XII grossly intact, moves all extremities Psych: affect normal, mood normal, not suicidal, not homicidal Course Orders Ordered: ED Orders 09/21/23 19:59 UA Complete [Urinalysis and Microscopic] Stat Urine Culture Stat 09/21/23 20:06 CT abdomen pelvis w con Stat 09/21/23 20:25 CBC Auto Diff [Complete Blood Count AUTO DIFF] Stat CMP [Comprehensive Metabolic Panel] Stat PT [Prothrombin Time INR] Stat Discontinued Medications Sodium Chloride (Normal Saline 0.9%) 1,000 mls @ 1,000 mls/hr IV BOLUS ONE Stop: 09/21/23 21:05 Last Infusion: 09/21/23 21:19 Dose: Infused Documented By: Admin: 09/21/23 20:28 Dose: 1,000 mls/hr Documented By: FELICITY Vital Signs Vital signs: Vital Signs - 8 hr 09/21/23 19:55 09/21/23 21:30 09/21/23 21:30 Temperature 97.9 F Pulse Rate 83 65 Respiratory Rate 14 Blood Pressure 156/90 H 179/86 H Pulse Oximetry 96 97 Oxygen Delivery Method Room Air Room Air 09/21/23 22:00 09/21/23 22:00 09/21/23 22:30 Temperature Pulse Rate 56 L 56 L Respiratory Rate Blood Pressure 162/81 H Pulse Oximetry 95 94 Oxygen Delivery Method Room Air 09/21/23 22:31 09/21/23 22:31 Temperature Pulse Rate 59 L Respiratory Rate Blood Pressure 158/74 H Pulse Oximetry 94 Oxygen Delivery Method Room Air MDM - Male Genitourinary Differential Diagnosis Differential diagnosis: Likely urinary tract infection, acute retention of urine and other (bladder cancer) Lab Data 09/21/23 20:25 09/21/23 20:25 Labs: Lab Results 09/21/23 09/21/23 Range/Units 19:59 20:25 WBC 8.4 (4.5-11.0) X10^3/uL RBC 4.01 L (4.5-5.9) X10^6/uL Hgb 14.2 (13.5-17.5) g/dL Hct 40.5 L (41-53) % MCV 101.0 H (80-100) fL MCH 35.3 H (26-34) PG MCHC 35.0 (30-36) % RDW 13.2 (11.6-14.8) % Plt Count 122 L (150-400) X10^3/uL Neut % (Auto) 64.6 (50-75) % Lymph % (Auto) 19.3 L (25-40) % [place] % (Auto) 13.8 (3-14) % Eos % (Auto) 1.6 L (2-4) % Baso % (Auto) 0.7 (0-2) % Neut # (Auto) 5400 (5681-7286) /uL Lymph # (Auto) 1600 (0309-6929) /uL [place] # (Auto) 1200 H (0-900) /uL Eos # (Auto) 100 (0-450) /uL Baso # (Auto) 100 (0-100) /uL PT 12.2 (9.4-12.5) SECONDS INR 1.1 (0.9-1.3) Sodium 135 L (137-145) mmol/L Potassium 4.4 (3.4-5.1) mmol/L Chloride 102 (98-107) mmol/L Carbon Dioxide 22 (22-32) mmol/L BUN 26 H (9-20) mg/dL Creatinine 1.55 H (0.66-1.25) mg/dL Estimated GFR 47 L (>60) mL/min BUN/Creatinine Ratio 16.8 (6-22) Glucose 105 (80-110) mg/dL Calcium 10.4 H (8.4-10.2) mg/dL Total Bilirubin 0.7 (0.2-1.3) mg/dL AST 31 (17-59) IU/L ALT 22 (<50) IU/L Alkaline Phosphatase 72 (38-126) U/L Total Protein 7.7 (6.3-8.2) g/dL Albumin 4.1 (3.5-5.0) g/dL Globulin 3.6 (1.7-4.1) g/dL Albumin/Globulin Ratio 1.1 (1.0-2.8) Urine Color Red Urine Appearance Cloudy Urine pH 6.5 (4.5-8.0) Ur Specific [place] 1.010 (1.000-1.035) Urine Protein 2+ H (Negative) Urine Glucose (UA) Negative (Negative) g/dL Urine Ketones Trace H (NEGATIVE) Urine Occult Blood 3+ H (Negative) Urine Nitrate Negative (Negative) Urine Bilirubin Negative (NEGATIVE) Urine Urobilinogen 0.2 (0.2) E.U./dL Ur Leukocyte Esterase Negative (NEGATIVE) Urine RBC >100/hpf H (0-5/HPF) Urine WBC 5-10/hpf H (0-5/HPF) Ur Squamous Epith Cells None seen (0-5/HPF) Urine Bacteria Occasional (0-1) (None) Ur Culture Indicated? Specimen cultured Vol Urine Centrifuged 10ml (spun) Urine Dip Bedside Urine Glucose Negative Bedside Urine Bilirubin - Negative Bedside Urine Ketone - Negative Urine Specific [place] 1.015 Bedside Urine Occult Blood +++ Bedside Urine pH 6.0 Bedside Urine Protein ++ 100 Bedside Urine Urobilinogen - Negative Bedside Urine Nitrite - Negative Bedside Urine Leukocytes ++ 125 Esterase MDM Narrative Medical decision making narrative: Painless hematuria and otherwise healthy adult. Abdomen is soft, despite complaining of right lower quadrant tenderness to deep palpation there is no reproducible tenderness on exam. No CVA tenderness bilaterally. We will order labs and CT imaging. Laboratory work shows hemoglobin 14.2, WBCs 8.4. Creatinine 1.55 (1.[address] previously[address] of the abdomen and pelvis with contrast shows a mass in the bladder base measuring 1.7 x 2.8 cm, concerning for cancerous process. There is mild right-sided hydronephrosis, secondary to this bladder mass. Patient reassessed, resting comfortably in bed, he states that he has urinated since coming to the emergency department and it has since cleared up. At bedside I counseled the patient on his labs and imaging and reported concerned that he had a bladder mass. I explained that he would need to follow up with specialist for further investigation of this mass, however it is highly concerning for a cancerous process. Referral to local urology provided. Patient stated that he would call 1st thing Sunday morning for a follow up appointment. Discharge Plan Departure Patient Disposition: Home Clinical Impression: Hematuria, Abnormal CT of the abdomen Instructions: DI for Hematuria Activity Restrictions/Additional Instructions: YOUR CT SCAN SHOWED ABNORMAL FINDINGS DOCUMENTED ABOVE 1. There is a mass in the bladder base measuring 1.7 x 2.8 cm, suspicious for uroepithelial neoplasm. 2. There is mild right hydronephrosis. The mass involves the ureterovesical junction. 3. No findings to suggest taisha or distant metastasis. 4. Small hiatal hernia. There is mild concentric thickening at the gastroesophageal junction. The finding may be related to gastroesophageal reflux. YOU ARE BEING REFERRED TO UROLOGY, THEY WILL DETERMINE THE NEXT APPROPRIATE STEPS IN YOUR WORKUP. Prescriptions: No Action [employer] 40-10-5-3.3 mg tablet 1 tab PO DAILY magnesium 250 mg tablet 250 mg PO DAILY docusate sodium [Stool Softener] 100 mg capsule 100 mg PO DAILY mecobalamin (vitamin B12) 5,000 mcg lozenge 3,000 mcg PO DAILY Rx Instructions: allow to dissolve in mouth OR may chew lightly before swallowing cholecalciferol (vitamin D3) 50 mcg (2,000 unit) capsule 50 mcg PO DAILY losartan 50 mg tablet 75 mg PO DAILY Qty: 135 3RF Referrals: Sean Burr MD [Primary Care Provider] - Dami Christian MD [Physician] - Stand Alone Forms: Patient Portal/API
[2023-09-21 20:22] LABS: Appearance Urine UA CLOUDY; Bilirubin Urine UA NEGATIVE (NEGATIVE); Color Urine UA RED; Glucose Urine UA NEGATIVE (Negative); Ketones Urine UA TRACE (NEGATIVE); Leukocyte Esterase Urine UA NEGATIVE (NEGATIVE); Nitrite Urine UA NEGATIVE (Negative); Occult Blood Urine UA 3+ (Negative); Protein Urine UA 2+ (Negative); Urobilinogen Urine UA 0.2 E.U./dL (0.2); pH Urine UA 6.5 (4.5-8.0)
[2023-09-21 20:24] LABS: Urine Volume 10mL (spun)
[2023-09-21 20:25] LABS: Bacteria Urine Occasional (0-1); Culture Indicated Urine Specimen Cultured; RBC Urine >100/HPF (0-5/HPF); Squamous Epithelial Cell Urine None Seen (0-5/HPF); WBC Urine 5-10/HPF (0-5/HPF)
[2023-09-21] MEDS: SODIUM CHLORIDE 0.9% 1,000 ML 1000 ML IV (20:28)
[2023-09-21 20:38] LABS: Add Manual Diff / Slide Review NO; Basophils Absolute Auto 100 /uL (0-100); Basophils Percent Auto 0.7 % (0-2); Eosinophils Absolute Auto 100 /uL (0-450); Eosinophils Percent Auto 1.6 % (2-4); Hematocrit 40.5 % (41-53); Hemoglobin 14.2 g/dL (13.5-17.5); Lymphocytes Absolute Auto 1600 /uL (1100-4500); Lymphocytes Percent Auto 19.3 % (25-40); Mean Corpuscular Hemoglobin 35.3 PG (26-34); Monocytes Absolute Auto 1200 /uL (0-900); Monocytes Percent Auto 13.8 % (3-14); Neutrophils Absolute Auto 5400 /uL (1500-7000); Neutrophils Percent Auto 64.6 % (50-75); Platelet Count 122 X10^3/uL (150-400); Red Blood Cell Count 4.01 X10^6/uL (4.5-5.9); Red Cell Distribution Width 13.2 % (11.6-14.8); White Blood Cell Count 8.4 X10^3/uL (4.5-11.0)
[2023-09-21 20:44] LABS: INR 1.1 (0.9-1.3); Prothrombin Time 12.2 SECONDS (9.4-12.5)
[2023-09-21 20:49] LABS: Alanine Aminotransferase 22 IU/L (<50); Albumin 4.1 g/dL (3.5-5.0); Albumin Globulin Ratio 1.1 (1.0-2.8); Alkaline Phosphatase 72 U/L (38-126); Aspartate Aminotransferase 31 IU/L (17-59); BUN Creatinine Ratio 16.8 (6-22); Bilirubin Total 0.7 mg/dL (0.2-1.3); Blood Urea Nitrogen 26 mg/dL (9-20); Calcium 10.4 mg/dL (8.4-10.2); Carbon Dioxide 22 mmol/L (22-32); Chloride 102 mmol/L (98-107); Estimated Glomerular Filt Rate 47 mL/min (>60); Globulin 3.6 g/dL (1.7-4.1); Glucose 105 mg/dL (80-110); HEMOLYSIS < 15 (0-50); Potassium 4.4 mmol/L (3.4-5.1); Sodium 135 mmol/L (137-145); Total Protein 7.7 g/dL (6.3-8.2)
[2023-09-21 21:30] VITALS: BP 179/86; PULSE 65; O2SAT 97
[2023-09-21 22:00] VITALS: BP 162/81; PULSE 56; O2SAT 95
[2023-09-21 22:30] VITALS: PULSE 56; O2SAT 94
[2023-09-21 22:31] VITALS: BP 158/74; PULSE 59; O2SAT 94
== END 2023-09-21 23:01 | disposition home or self-care (01) ==
PROVIDERS: Emergency Provider Emergency Medicine; Family Provider Family Medicine; PCP Family Medicine
DX: R31.9 Hematuria, unspecified (principal); R10.31 Right lower quadrant pain; R93.5 Abnormal findings on diagnostic imaging of other abdominal regions, including retroperitoneum
CPT/HCPCS: 36415; 74177; 80053; 81001; 81003; 85025; 85610; 87086; 96360; 99284; Q9967

== ENCOUNTER → 2023-10-03 07:01 | Outpatient (CLI) | payer MEDICARE, SELFPAY ==
[2023-10-03 08:19] LABS: Add Manual Diff / Slide Review NO; Basophils Absolute Auto 0 /uL (0-100); Eosinophils Absolute Auto 200 /uL (0-450); Eosinophils Percent Auto 4.1 % (2-4); Hematocrit 41.1 % (41-53); Hemoglobin 14.2 g/dL (13.5-17.5); Lymphocytes Absolute Auto 1400 /uL (1100-4500); Mean Corpuscular HGB Conc 34.5 % (30-36); Mean Corpuscular Hemoglobin 34.8 PG (26-34); Monocytes Absolute Auto 600 /uL (0-900); Monocytes Percent Auto 11.7 % (3-14); Neutrophils Absolute Auto 2700 /uL (1500-7000); Neutrophils Percent Auto 55.2 % (50-75); Platelet Count 236 X10^3/uL (150-400); Red Blood Cell Count 4.07 X10^6/uL (4.5-5.9); White Blood Cell Count 4.8 X10^3/uL (4.5-11.0)
[2023-10-03 08:41] LABS: Alanine Aminotransferase 20 IU/L (<50); Albumin 4.1 g/dL (3.5-5.0); Albumin Globulin Ratio 1.2 (1.0-2.8); Alkaline Phosphatase 65 U/L (38-126); Aspartate Aminotransferase 32 IU/L (17-59); BUN Creatinine Ratio 16.8 (6-22); Bilirubin Total 0.8 mg/dL (0.2-1.3); Blood Urea Nitrogen 18 mg/dL (9-20); Calcium 9.9 mg/dL (8.4-10.2); Carbon Dioxide 29 mmol/L (22-32); Chloride 102 mmol/L (98-107); Estimated Glomerular Filt Rate > 60 mL/min (>60); Globulin 3.3 g/dL (1.7-4.1); Glucose 101 mg/dL (80-110); HEMOLYSIS < 15 (0-50); Lactate Dehydrogenase 199 U/L (120-246); Potassium 4.7 mmol/L (3.4-5.1); Sodium 137 mmol/L (137-145); Total Protein 7.4 g/dL (6.3-8.2)
[2023-10-05 09:47] LABS: Calcium 9.5 mg/dL (8.6-10.2); Parathyroid Hormone, Intact 25 pg/mL (15-65)
== END ==
LOC: LAB 07:02
PROVIDERS: Family Provider Family Medicine; PCP Family Medicine; Referring Provider Family Medicine; Visit Provider Family Medicine
DX: R31.9 Hematuria, unspecified (principal); I10 Essential (primary) hypertension
CPT/HCPCS: 36415; 80053; 82310; 83615; 83970; 85025

== ENCOUNTER 2023-10-16 09:12 | Day surgery (SDC) | payer MEDICARE, SELFPAY ==
[2023-10-15 14:18] VITALS: BMI 25.1
[2023-10-16] VITALS (8 sets, daily range): BP systolic 131–168; BP diastolic 65–90; PULSE 56–90; RESP 12–20; TEMP 36.6–36.8; O2SAT 94–98; BMI 25.1
--- NOTE | 2023-10-16 | PATH_ITS ---
[facility] Accession Number: [id number] No. of containers..01 Tissue . 01 Material submitted: . bladder - RIGHT LATERAL WALL BLADDER TUMOR . 01 Diagnosis: URINARY BLADDER, RIGHT LATERAL WALL, BIOPSY: Noninvasive papillary urothelial carcinoma, high grade. Muscularis propria not present in specimen. MRV 10/18/2023 1630 Local . 01 Electronically signed: . Kavita Ayala MD, Pathologist NPI- [id number] . 01 Gross description: . RIGHT LATERAL WALL BLADDER TUMOR: Received in formalin is multiple fragment(s) of alejandro, soft tissue measuring 3.0 x 2.5 x 0.4 cm in aggregate submitted entirely in 1 cassette(s) /AAY 10/17/2023 0437 Local . 01 Pathologist provided ICD-10: N32.89 . 01 CPT . 845556 Specimen Comment: A courtesy copy of this report has been sent to [phone] Performed at: 01 [facility] [address] [place] [address] [address], [place], [place] [id number] MD Agapito Ma MD Phone: [phone]
[2023-10-16] MEDS: LACTATED RINGERS 1,000 ML 21 ML IV (09:49)
--- NOTE | 2023-10-16 10:15 | PM.PREOP ---
Pre-operative Note COVID-19 COVID-19 status: Not tested Interval Note History & Physical reviewed/Exam performed by Physician: Yes Changes to H&P: Yes H&P completed within 30 days and has changed as indicated here:: An addendum was added in reviewing the patient's film his tumor is based on the right bladder and not the left this was corrected by the addendum to state that the tumor is on the posterior right and not left as noted in the H&P.
[2023-10-16] MEDS: ACETAMINOPHEN 325 MG TABLET 975 MG PO (10:43)
[2023-10-16] MEDS: CEFAZOLIN 2 GM/100 ML PREMIX 100 ML IV (10:48)
--- NOTE | 2023-10-16 11:23 | SUR.OPER ---
Lithotomy on padded OR bed, head on pillow, arms secured on padded arm boards at <90 degrees abduction. Legs secured in padded yellow fins stirrups.
[2023-10-16] MEDS: WATER FOR INJECTION,STERILE 20 ML, mitoMYcin 20 MG INTRAVESIC (11:40)
--- NOTE | 2023-10-16 11:49 | PM.OP.1 ---
Procedure & Clinicians Procedure: Transurethral resection of bladder tumor medium (3 cm tumor) with right ureteral catheterization and instillation of mitomycin. Same procedure as scheduled: Yes Indications: This 72-year-old male presented with complaint of gross hematuria underwent imaging which revealed a right posterolateral filling defect consistent with papillary bladder tumor. He presents this time for resection/cystoscopy and as it turns out Transurethral resection of bladder tumor with instillation of mitomycin. Surgeon: Dami Christian Click Yes if Unassisted: Yes Anesthesia Type: General Operative Notes Findings: Findings: Urethral meatus is normal urethra is normal along its length and the sphincter as well coapted. Throughout this section the mucosa is normal. The prostate shows minimal to moderate obstructive character. The left ureteral orifice in normal position with clear efflux. On the posterolateral right bladder wall is a tumor which is a proximally 3 cm perhaps slightly larger in diameter. It is just cephalad of the right ureteral orifice. The right ureteral orifice was not involved. At the end of procedure all visible papillary lesion/tumor was resected and or destroyed. The ureteral orifice was intact with a margin of normal urothelium around it. Therefore the [place] catheter which he had been placed to aid resection was removed. A 24 [place] 5 cc Alberto catheter was left in place with 14 cc in the balloon. Of note the tumor did not so much come down to a stalk as it was a more flat field of tumor again at least 3 cm in diameter. No other abnormality was noted within the bladder. Closure Type: not applicable Specimen(s): other (Fragments of right posterolateral bladder tumor) Prosthetic devices, grafts, tissues, transplants, or devices: 24 [place] [address] Alberto catheter with 14 cc in the balloon was left in place through the urethra and into the bladder. Applied: catheter (Twenty[place] [place] [address] 5 cc with 14 cc in the balloon) Estimated Blood Loss (mL): 25 Blood products transfused: none Procedure in detail: Procedure in detail: After informed consent was obtained, the patient was identified and brought to the operating room where he is placed in his supine position on the table. Once there anesthesia was induced and maintained. Ensuring an adequate level of anesthesia the patient was transition to the lithotomy position where he was prepped, draped and prepared for Transurethral procedure. After prepping, draping continence during an adequate level of anesthesia ensuring antibiotics had been administered and time-out a 22 [place] cystoscope was passed through the urethra prostate and in the bladder where cystoscopy was performed. With the findings and hand [place] catheter was then passed up and into the collecting system and left in place during the resection. The bladder was left school the scope was then backed out and the [place] catheter left in place. The urethral meatus was then gently dilated with Sarahi sounds to facilitate passage of the resectoscope which was then passed through the urethra prostate and into the bladder. The resecting loop was then used to resect tumor till all the could be safely resected was. There were areas where the tumor was very thin and given the thickness of the patient's bladder the button device was then inserted to destroy resect the remainder of the tumor as well as control bleeding with the electrocautery. The fragments were then evacuated. In the bladder was filled drained filled and drained. The bladder was once again observed and another small separate papillary lesion just cephalad to the main tumor was noted and destroyed with the button and fulguration. At this point it appeared no other tumors remained hemostasis was good the bladder was left full with all fragments removed and the [place] catheter was removed given the favorable findings at the right ureteral orifice. The resectoscope was then removed and the 24 [place] 5 cc Alberto catheter passed through the urethra prostate and into the bladder without difficulty the balloon was filled with 14 cc of sterile water and placed to gravity drainage. Then using the safety catheter plugged the mitomycin was instilled within the bladder the plug was left in place and the patient was awakened having tolerated the procedure well to be transferred to the postanesthesia care unit for recovery. There were no complications the patient will be discharged to home and will follow-up my office in about 2 to 2-1/2 weeks. He will likely need to have the catheter for approximately 3 weeks given the extent of resection. Complications: none Post-operative Condition: stable Disposition: PACU Plan for aftercare: Discharged to home with Alberto catheter to follow up my office in approximately 14 days. Patient will likely need to have his catheter for approximately 3 weeks.
[2023-10-16] MEDS: OXYBUTYNIN 5 MG TABLET PO (12:08)
[2023-10-16] MEDS: PHENAZOPYRIDINE 100 MG TABLET 200 MG PO (12:08)
[2023-10-16] MEDS: OXYCODONE IR 5 MG TABLET PO (12:09)
--- NOTE | 2023-10-16 14:25 | SUR.PHASEII ---
Reza drained at 1345. Urine red to red/brown. Patient reported 2-3/10 pain. Reza instructions reviewed with patient and spouse. Questions answered. Leg and reza bag provided.
== END 2023-10-16 14:31 | disposition home or self-care (01) ==
PROVIDERS: Family Provider Family Medicine; PCP Family Medicine; Referring Provider Urology; Visit Provider Urology
PROC: 0TBB8ZZ Excision of Bladder, Via Natural or Artificial Opening Endoscopic (ICD-10-PCS; CPT 52235; principal; 2023-10-16 10:30)
DX: D09.0 Carcinoma in situ of bladder (principal)
CPT/HCPCS: 52235; J0330; J0690; J1100; J2405; J2704; J3010; J9280

== ENCOUNTER 2023-10-30 11:24 | Observation (INO) | payer MEDICARE, SELFPAY ==
[2023-10-30] VITALS (13 sets, daily range): BP systolic 123–154; BP diastolic 64–72; PULSE 48–96; RESP 16–30; TEMP 36.3–37.2; O2SAT 96–98; BMI 25.1; BMI 23.1
--- NOTE | 2023-10-30 11:46 | DI.US.S_ITS ---
PROCEDURE: US PERIPH VENOUS LOW EXTREM LT INDICATIONS: SWELLING/PAIN TECHNIQUE: Real-time imaging, as well as color and pulse Doppler interrogation, were performed of the lower extremity deep veins from the inguinal ligament to the popliteal fossa, with documentation of the visualized calf veins. COMPARISON: None. FINDINGS: There is focal DVT present in the distal common femoral vein, nonocclusive. The popliteal vein is occluded by clot. There is occlusive clot in period posterior tibial veins and paired peroneal veins. IMPRESSION: DVT involving the common femoral focally, as well as the popliteal vein and multiple calf veins period Comment: Preliminary findings were reported by the laborer pipeline to the referring provider at the time of study completion. Dictated by: Paramjit Glover M.D. on 10/30/2023 at 12:45 Approved by: Paramjit Glover M.D. on 10/30/2023 at 12:47
--- NOTE | 2023-10-30 11:58 | DI.RAD.S_ITS ---
PROCEDURE: XR CHEST 1V INDICATIONS: Shortness of breath TECHNIQUE: One view of the chest was acquired. COMPARISON: None. FINDINGS: Surgical changes and devices: None. Lungs and pleura: Lungs are clear. No pleural effusions or pneumothorax. Mediastinum: Mediastinal contours appear normal. Heart is enlarged. Bones and chest wall: No suspicious bony lesions. Overlying soft tissues appear unremarkable. IMPRESSION: No acute cardiopulmonary abnormality is seen. Dictated by: Marjan Gottlieb MD, PhD on 10/30/2023 at 13:03 Approved by: Marjan Gottlieb MD, PhD on 10/30/2023 at 13:04
--- NOTE | 2023-10-30 12:18 | ED_ITS ---
HPI - Extremity Problem General Chief complaint: Extremity Problem,Nontraumatic Stated complaint: poss blood clot in L leg, sent by Dr. Christian Time Seen by Provider: 10/30/23 12:09 Source: patient Mode of arrival: Ambulatory History of Present Illness HPI Narrative: 72-year-old male with history of hypertension, smoking, bladder outlet obstruction presents with leg swelling and shortness of breath. He was sent in by Dr. Christian in the setting of recent procedure, where patient states his bladder mass was removed. He has bladder cancer, not currently undergoing treatment. He has no history of blood clots. He thinks his father may have had a blood clot but he has not sure. No known clotting disorders. Patient states in the last week, he has had gradual worsening swelling of his left lower extremity in the setting of more bedrest, with Alberto in place with recent procedure. He also around 1 week ago developed shortness of breath. He denies chest pain. No lightheadedness or passing out. No fevers or chills. No nausea or vomiting. No discoloration to his left lower extremity, which he notes full strength and sensation in. He states he is having some difficulty walking due to pain no. No other recent procedures or travel. No blood thinners. No other new concerns. Per chart review, he has bladder tumor with recent assessment by Urology with Dr. Christian. He has history of HTN. Related Data Home Medications Medication Instructions Recorded Confirmed Tylenol Extra Strength 1,000 mg PO 3XD PRN Pain 10/30/23 10/30/23 docusate sodium 200 mg PO DAILY 10/30/23 10/30/23 Previous Rx's Medication Instructions Recorded losartan 50 mg tablet 75 mg (1.5 x 50 mg) PO DAILY #135 07/05/23 tabs Allergies Allergy/AdvReac Type Severity Reaction Status Date / Time No Known Drug Allergies Allergy Verified 10/02/23 09:15 Review of Systems Review of Systems Narrative: Constitutional: no fever, no chills Eyes: no visual disturbance, no discharge Ears, Nose, Mouth, Throat: no rhinorrhea, no sore throat Cardiovascular: no chest pain, no palpitations Respiratory: no cough, + shortness of breath Gastrointestinal: no abdominal pain, no vomiting, no diarrhea Genitourinary: no dysuria, no hematuria Musculoskeletal: no back pain, no neck stiffness Skin: no rash, no wound Neurological: no focal weakness, no focal numbness Patient History Medical History (Updated 10/30/23 @ 14:14 by Preston Harman MD) History of tobacco use Bladder outlet obstruction Lower urinary tract symptoms Secondhand smoke exposure Gross hematuria Bladder mass Male circumcision History of migraine Constipation Osteoarthritis of right hip Primary hypertension Surgical History H/O oral surgery History of appendectomy Family History Father Cancer Hypertension Mother Cancer Social History household members: spouse Smoking Status: Former smoker alcohol intake: current Smoking Status: Former smoker alcohol intake frequency: 0-2 drinks per day Alcohol type: wine and hard liquor Substance Use Type: does not use Exam Narrative Exam Narrative: Const: no acute distress, non toxic appearing; calm, conversant, pleasant Eyes: PERRLA, EOMI ENT: mucous membranes moist Neck: supple, non-tender Resp: no respiratory distress, clear to auscultation bilaterally Card: regular rate and rhythm, no murmurs Abd: non tender diffusely, no rigidity or rebound or guarding Back: no T or L spine tenderness, no CVA tenderness bilaterally Extrem: no deformities, asymmetric swelling and tenderness of left lower extremity with 2+ pulses though mildly decreased relative to right lower extremity; there is less than 2nd capillary refill to distal left lower extremity, with fully intact strength and sensation, no pain with range of motion of joints : Alberto in place draining urine, yellow Neuro: ANOx4, nuclear waste management engineer grossly intact, grossly intact sensation and strength all extremities Skin: no rash, warm and dry Initial Vital Signs Initial Vital Signs: Vital Signs Temperature 97.3 F L 10/30/23 11:27 Pulse Rate 70 10/30/23 11:27 Respiratory Rate 18 10/30/23 11:27 Blood Pressure 123/68 10/30/23 11:27 Pulse Oximetry 98 10/30/23 11:27 Oxygen Delivery Method Room Air 10/30/23 11:27 Course Course Course Narrative: This presentation is highly concerning for DVT with potential concurrent pulmonary embolism, and a currently overall comfortable appearing patient with no respiratory distress or oxygen needs. I have considered broad differential including but not limited to DVT, PE, cellulitis, ACS, pneumothorax, COPD, heart failure, symptomatic anemia, viral syndrome, pneumonia, among other conditions. However, I think initiating workup initially for DVT and PE is most appropriate. Obtaining labs, EKG, ultrasound and closely reassessing, with anticipate of CTA PE study. EKG sinus bradycardia without acute ischemia or immediately concerning interval prolongation on my review. Note T-wave inversion in lead 3 without recent for comparison. Note CT dissection protocol order and NTG placed that is NOT correct; RN removing this order. CTA PE study being ordered. Labs: CBC with leukocytosis, anemia, no thrombocytopenia. INR within normal limits. BNP reassuring. Chemistry with mild hyponatremia, creatinine within normal limits, no LFT elevation. Lactate reassuring. Troponin reassuring. PTT within normal limits. Radiology review of imaging below, which I agree with on my independent review: US: FINDINGS: There is focal DVT present in the distal common femoral vein, nonocclusive. The popliteal vein is occluded by clot. There is occlusive clot in period posterior tibial veins and paired peroneal veins. IMPRESSION: DVT involving the common femoral focally, as well as the popliteal vein and multiple calf veins period Comment: Preliminary findings were reported by the engraver apprentice decorative to the referring provider at the time of study completion. Dictated by: Paramjit Glover M.D. on 10/30/2023 at 12:45 CTA: FINDINGS: Image quality: Diagnostic. Pulmonary arteries: Multiple nonocclusive subsegmental filling defects are visualized bilaterally within the lower lobes, right upper lobe and the right middle lobe. No filling defects are visualized within the pulmonary arterial trunk or the main pulmonary arteries. Lower Neck: No enlarged lymph nodes. Thyroid: No thyroid nodules which require sonographic follow up, per consensus guidelines. Axillae: No enlarged lymph nodes. Chest Wall: Unremarkable. Bones: Unremarkable. Lungs and Pleura: No pneumothorax or pleural effusions. Mild honeycombing fibrosis is present at the right lung base. No acute airspace opacities or suspicious pulmonary nodules. Heart: Heart size is mildly enlarged. No pericardial effusion. There is no leftward ventricular septal bowing to suggest right heart strain. Thoracic Vessels: No aortic aneurysm. Mediastinum and Ambika: No enlarged lymph nodes. Esophagus: No wall thickening. No hiatal hernia. Upper Abdomen: Visualized upper abdomen solid organs and bowel loops appear normal. IMPRESSION: 1. Bilateral nonocclusive subsegmental pulmonary emboli. 2. No findings to suggest right heart strain. 3. No acute airspace opacities. These findings were discussed with Dr. Harman at 1:28 p.m. on October 30, 2023. Dictated by: Carlyn Olivares M.D. on 10/30/2023 at 13:24 This is currently highly consistent with DVT of the lower extremity, currently without phlegmasia cerulea dolens, in a patient who is perfusing, along with bilateral submassive PEs without evidence of right heart strain. Patient has PESI score of 114 however, due to age, cancer, male sex. I updated patient, discussed any history of bleeding, which he denies. I am consulting his urologist to discuss initiation of anticoagulation as well as our hospitalist. Patient very dyspneic with ambulation, though not tachycardic or hypoxic. Note there will be a delay in urology consult. I feel anticoagulation is important for this patient and am starting Eliquis. I spoke with Dr. Reis, reviewing case on phone. He will come assess patient as well. I also spoke with Dr. Valentino of Urology as well, reviewing case. Urologist updated that Alberto is having right red blood. He still recommends Alberto removal, ciprofloxacin IV and cipro course and ensuring patient can void. If bleeding worsens, he will need repeat Urology consult. Dr. Reis is kindly going to admit patient for further treatment. Note I spoke with pharmacy about doing both cipro and eliquis and there should be no substantial interaction. Patient being admitted in stable condition. Orders Ordered: ED Orders 10/30/23 11:46 US periph venous low extrem lt Stat 10/30/23 11:58 XR chest 1V Stat Measure peak expiratory flow ONCE RT Consult Eval and Treat NOW 10/30/23 12:21 Complete Blood Count AUTO DIFF Stat Comprehensive Metabolic Panel Stat Lactate (Lactic Acid) Stat NT-proBNP (BNP-Adult 18+) Stat PTT Partial Thromboplastin [place] Stat Prothrombin Time INR Stat Troponin I Stat 10/30/23 12:27 EKG-12 Lead Stat 10/30/23 12:51 CT angio chest PE protocol Stat Acetaminophen (Acetaminophen 325 Mg Tablet) 650 mg PO Q6H PRN PRN Reason: Fever/Mild Pain (1-3) Al Hydrox/Mg Hydrox/Simethicone (Mag Hydrox/Alum/Simeth 30 Ml Udc) 30 ml PO Q4HR PRN PRN Reason: Dyspepsia Heparin Sodium/Dextrose (Heparin Drip) 25,000 unit in 500 mls @ 28.576 mls/hr IV CONT FRANCY; Protocol Melatonin (Melatonin 3 Mg Tablet) 6 mg PO BEDTIME PRN PRN Reason: Insomnia Naloxone HCl (Naloxone 0.4 Mg/Ml Vial) 0.2 mg IV Q2MIN PRN PRN Reason: Opiate Reversal Ondansetron HCl (Ondansetron 4 Mg/2 Ml Inj) 4 mg IV Q4HR PRN PRN Reason: Nausea And Vomiting Polyethylene Glycol (Polyethylene Glycol 3350 17 Gm Powd.Pack) 17 gm PO DAILY PRN PRN Reason: Constipation Sennosides (Sennosides 8.6 Mg Tablet) 8.6 mg PO BID PRN PRN Reason: Constipation Discontinued Medications Apixaban (Apixaban 5 Mg Tablet) 10 mg PO NOW ONE Stop: 10/30/23 13:45 Last Admin: 10/30/23 13:59 Dose: 10 mg Documented By: EELANOR Ciprofloxacin (Cipro) 400 mg in 200 mls @ 200 mls/hr IV NOW ONE Stop: 10/30/23 14:56 Last Admin: 10/30/23 14:13 Dose: 200 mls/hr Documented By: ELEANOR Nitroglycerin (Nitroglycerin Oint 1 Inch/Gm Oint...G.) 1 inch TOP NOW ONE Stop: 10/30/23 12:50 Last Admin: 10/30/23 12:54 Dose: Not Given Documented By: GUY Vital Signs Vital signs: Vital Signs - 8 hr 10/30/23 11:27 10/30/23 12:35 10/30/23 12:36 Temperature 97.3 F L Pulse Rate 70 54 L 96 H Respiratory Rate 18 16 17 Blood Pressure 123/68 Pulse Oximetry 98 97 97 Oxygen Delivery Method Room Air 10/30/23 12:36 10/30/23 13:04 10/30/23 13:23 Temperature Pulse Rate 48 L 48 L Respiratory Rate 25 H 17 Blood Pressure 142/67 H Pulse Oximetry 97 Oxygen Delivery Method 10/30/23 13:23 10/30/23 13:30 10/30/23 13:30 Temperature Pulse Rate 50 L Respiratory Rate 26 H Blood Pressure 142/64 H 154/67 H Pulse Oximetry 96 Oxygen Delivery Method 10/30/23 13:44 10/30/23 14:00 Temperature Pulse Rate 92 H 55 L Respiratory Rate 28 H Blood Pressure Pulse Oximetry 98 98 Oxygen Delivery Method MDM - Extremity (Nontraumatic) Lab Data 10/30/23 12:21 10/30/23 12:21 Labs: Lab Results 10/30/23 Range/Units 12:21 WBC 13.1 H (4.5-11.0) X10^3/uL RBC 3.65 L (4.5-5.9) X10^6/uL Hgb 12.4 L (13.5-17.5) g/dL Hct 36.7 L (41-53) % MCV 100.5 H (80-100) fL MCH 34.0 (26-34) PG MCHC 33.8 (30-36) % RDW 12.5 (11.6-14.8) % Plt Count 237 (150-400) X10^3/uL Neut % (Auto) 79.0 H (50-75) % Lymph % (Auto) 7.3 L (25-40) % [place] % (Auto) 12.1 (3-14) % Eos % (Auto) 0.6 L (2-4) % Baso % (Auto) 1.0 (0-2) % Neut # (Auto) 67755 H (3408-0116) /uL Lymph # (Auto) 900 L (4479-8137) /uL [place] # (Auto) 1600 H (0-900) /uL Eos # (Auto) 100 (0-450) /uL Baso # (Auto) 100 (0-100) /uL PT 14.8 H (9.4-12.5) SECONDS INR 1.3 (0.9-1.3) APTT 34 (25.1-36.5) SECONDS Sodium 132 L (137-145) mmol/L Potassium 4.4 (3.4-5.1) mmol/L Chloride 101 (98-107) mmol/L Carbon Dioxide 24 (22-32) mmol/L BUN 35 H (9-20) mg/dL Creatinine 1.25 (0.66-1.25) mg/dL Estimated GFR > 60 (>60) mL/min BUN/Creatinine Ratio 28.0 H (6-22) Glucose 118 H (80-110) mg/dL Lactate 1.1 (0.7-2.1) mmol/L Calcium 9.4 (8.4-10.2) mg/dL Magnesium 2.5 H (1.6-2.3) mg/dL Total Bilirubin 0.9 (0.2-1.3) mg/dL AST 35 (17-59) IU/L ALT 30 (<50) IU/L Alkaline Phosphatase 83 (38-126) U/L Troponin I < 0.012 (0.01-0.034) ng/mL NT-Pro-B Natriuret Pep 124 (<125) pg/mL Total Protein 7.7 (6.3-8.2) g/dL Albumin 3.8 (3.5-5.0) g/dL Globulin 3.9 (1.7-4.1) g/dL Albumin/Globulin Ratio 1.0 (1.0-2.8) Discharge Plan Departure Patient Disposition: Admitted as Observation Clinical Impression: Pulmonary embolism Admit Date/Time: 10/30/23 14:27 Admit Provider: Bridger Reis
[2023-10-30 12:41] LABS: Add Manual Diff / Slide Review NO; Basophils Absolute Auto 100 /uL (0-100); Eosinophils Absolute Auto 100 /uL (0-450); Eosinophils Percent Auto 0.6 % (2-4); Hematocrit 36.7 % (41-53); Hemoglobin 12.4 g/dL (13.5-17.5); Lymphocytes Absolute Auto 900 /uL (1100-4500); Lymphocytes Percent Auto 7.3 % (25-40); Mean Corpuscular HGB Conc 33.8 % (30-36); Mean Corpuscular Volume 100.5 fL (80-100); Monocytes Absolute Auto 1600 /uL (0-900); Monocytes Percent Auto 12.1 % (3-14); Neutrophils Absolute Auto 10300 /uL (1500-7000); Platelet Count 237 X10^3/uL (150-400); Red Blood Cell Count 3.65 X10^6/uL (4.5-5.9); Red Cell Distribution Width 12.5 % (11.6-14.8); White Blood Cell Count 13.1 X10^3/uL (4.5-11.0)
--- NOTE | 2023-10-30 12:51 | DI.CT.S_ITS ---
PROCEDURE: CT ANGIO CHEST PE PROTOCOL INDICATIONS: rule out PE; DVT present, shortness of breath TECHNIQUE: After the administration of intravenous contrast, 2 mm thick sections acquired from the pulmonary apices to the posterior costophrenic angles. 3-dimensional maximum intensity projection (MIP) coronal and sagittal reformats were then acquired through the thorax. For radiation dose reduction, the following was used: automated exposure control, adjustment of mA and/or kV according to patient size. COMPARISON: None. FINDINGS: Image quality: Diagnostic. Pulmonary arteries: Multiple nonocclusive subsegmental filling defects are visualized bilaterally within the lower lobes, right upper lobe and the right middle lobe. No filling defects are visualized within the pulmonary arterial trunk or the main pulmonary arteries. Lower Neck: No enlarged lymph nodes. Thyroid: No thyroid nodules which require sonographic follow up, per consensus guidelines. Axillae: No enlarged lymph nodes. Chest Wall: Unremarkable. Bones: Unremarkable. Lungs and Pleura: No pneumothorax or pleural effusions. Mild honeycombing fibrosis is present at the right lung base. No acute airspace opacities or suspicious pulmonary nodules. Heart: Heart size is mildly enlarged. No pericardial effusion. There is no leftward ventricular septal bowing to suggest right heart strain. Thoracic Vessels: No aortic aneurysm. Mediastinum and Ambika: No enlarged lymph nodes. Esophagus: No wall thickening. No hiatal hernia. Upper Abdomen: Visualized upper abdomen solid organs and bowel loops appear normal. IMPRESSION: 1. Bilateral nonocclusive subsegmental pulmonary emboli. 2. No findings to suggest right heart strain. 3. No acute airspace opacities. These findings were discussed with Dr. Harman at 1:28 p.m. on October 30, 2023. Dictated by: Carlyn Olivares M.D. on 10/30/2023 at 13:24 Approved by: Carlyn Olivares M.D. on 10/30/2023 at 13:30
[2023-10-30 12:52] LABS: INR 1.3 (0.9-1.3); Prothrombin Time 14.8 SECONDS (9.4-12.5)
[2023-10-30 13:01] LABS: Lactate (Lactic Acid) 1.1 mmol/L (0.7-2.1)
[2023-10-30 13:02] LABS: Alanine Aminotransferase 30 IU/L (<50); Albumin 3.8 g/dL (3.5-5.0); Alkaline Phosphatase 83 U/L (38-126); Aspartate Aminotransferase 35 IU/L (17-59); Bilirubin Total 0.9 mg/dL (0.2-1.3); Blood Urea Nitrogen 35 mg/dL (9-20); Calcium 9.4 mg/dL (8.4-10.2); Carbon Dioxide 24 mmol/L (22-32); Chloride 101 mmol/L (98-107); Estimated Glomerular Filt Rate > 60 mL/min (>60); Globulin 3.9 g/dL (1.7-4.1); Glucose 118 mg/dL (80-110); HEMOLYSIS < 15 (0-50); Potassium 4.4 mmol/L (3.4-5.1); Sodium 132 mmol/L (137-145); Total Protein 7.7 g/dL (6.3-8.2)
[2023-10-30 13:13] LABS: NT-proBNP (BNP-Adult 18+) 124 pg/mL (<125); Troponin I < 0.012 ng/mL (0.01-0.034)
[2023-10-30 13:15] LABS: PTT Partial Thromboplastin Tim 34 SECONDS (25.1-36.5)
[2023-10-30] MEDS: APIXABAN 5 MG TABLET 10 MG PO (13:59)
[2023-10-30] MEDS: CIPROFLOXACIN 400 MG/200 ML PIGGYBACK 200 MG IV (14:13)
--- NOTE | 2023-10-30 15:15 | P.HP_ITS ---
History of Present Illness History of Present Illness Date Patient Seen: 10/30/23 Chief complaint: poss blood clot in L leg, sent by Dr. Christian Narrative: Wesley Rivera is a 72yo M with PMH of bladder cancer s/p tumor resection 2 weeks ago and HTN who presents with acute dyspnea and L calf swelling. Patient first noticed swelling in his left calf about 4 days ago which progressed into exertional dyspnea. He has had some bleeding around the meatus at the reza insertion site. He had some hematuria after his resection, but none now. Patient not requiring supp O2 in ED. Found to have subsegmental PE's without R heart strain. DVT US shows extensive clot in L leg. He was given 1 dose of eliquis 10mg. Denies CP, SOB at rest, NV, abd pain or diarrhea. [facility] [place] Medical History (Updated 10/30/23 @ 14:14 by Preston Harman MD) History of tobacco use Bladder outlet obstruction Lower urinary tract symptoms Secondhand smoke exposure Gross hematuria Bladder mass Male circumcision History of migraine Constipation Osteoarthritis of right hip Primary hypertension Surgical History H/O oral surgery History of appendectomy Family History Father Cancer Hypertension Mother Cancer Social History household members: spouse Smoking Status: Former smoker alcohol intake: current Meds Home Medications and Allergies Home Medications Medication Instructions Recorded Confirmed Type losartan 50 mg tablet 75 mg (1.5 x 50 mg) PO DAILY #135 07/05/23 10/30/23 Rx tabs Tylenol Extra Strength 1,000 mg PO 3XD PRN Pain 10/30/23 10/30/23 History docusate sodium 200 mg PO DAILY 10/30/23 10/30/23 History Allergies Allergy/AdvReac Type Severity Reaction Status Date / Time No Known Drug Allergies Allergy Verified 10/02/23 09:15 Review of Systems Review of Systems Narrative: All other systems reviewed with the patient and are negative unless otherwise stated. Exam Vital Signs (past 8 hours): - 10/30/23 11:27 10/30/23 12:35 10/30/23 12:36 Temperature 97.3 F L Pulse Rate 70 54 L 96 H Respiratory Rate 18 16 17 Blood Pressure 123/68 Pulse Oximetry 98 97 97 Oxygen Delivery Method Room Air 10/30/23 12:36 10/30/23 13:04 10/30/23 13:23 Temperature Pulse Rate 48 L 48 L Respiratory Rate 25 H 17 Blood Pressure 142/67 H Pulse Oximetry 97 Oxygen Delivery Method 10/30/23 13:23 10/30/23 13:30 10/30/23 13:30 Temperature Pulse Rate 50 L Respiratory Rate 26 H Blood Pressure 142/64 H 154/67 H Pulse Oximetry 96 Oxygen Delivery Method 10/30/23 13:44 10/30/23 14:00 10/30/23 14:30 Temperature Pulse Rate 92 H 55 L 54 L Respiratory Rate 28 H 21 Blood Pressure Pulse Oximetry 98 98 97 Oxygen Delivery Method 10/30/23 14:47 10/30/23 14:47 Temperature Pulse Rate 57 L Respiratory Rate 30 H Blood Pressure 142/70 H Pulse Oximetry 97 Oxygen Delivery Method Oxygen Delivery Method Room Air Narrative Exam Narrative: GEN: no acute distress HEENT: moist mucous membranes, PERRL NECK: trachea midline, no JVD CV: regular rate and rhythm, no murmurs PULM: clear bilaterally ABD: soft, nontender, nondistended, no organomegaly EXT: left calf more swollen than the right NEURO: awake, alert, oriented, no focal deficits Objective Labs 10/30/23 12:21 10/30/23 12:21 Labs: Laboratory Results - last 24 hr 10/30/23 12:21 WBC 13.1 H RBC 3.65 L Hgb 12.4 L Hct 36.7 L MCV 100.5 H MCH 34.0 MCHC 33.8 RDW 12.5 Plt Count 237 Neut % (Auto) 79.0 H Lymph % (Auto) 7.3 L [place] % (Auto) 12.1 Eos % (Auto) 0.6 L Baso % (Auto) 1.0 Neut # (Auto) 29092 H Lymph # (Auto) 900 L [place] # (Auto) 1600 H Eos # (Auto) 100 Baso # (Auto) 100 PT 14.8 H INR 1.3 APTT 34 Sodium 132 L Potassium 4.4 Chloride 101 Carbon Dioxide 24 BUN 35 H Creatinine 1.25 Estimated GFR > 60 BUN/Creatinine Ratio 28.0 H Glucose 118 H Lactate 1.1 Calcium 9.4 Total Bilirubin 0.9 AST 35 ALT 30 Alkaline Phosphatase 83 Troponin I < 0.012 NT-Pro-B Natriuret Pep 124 Total Protein 7.7 Albumin 3.8 Globulin 3.9 Albumin/Globulin Ratio 1.0 Assessment & Plan Assessment & Plan narrative: # acute pulmonary embolism -CT with bilateral subsegmental PE's, no right heart strain -DVT US with clot in L calf -etiology likely due to recent surgery, cancer and patient has been sedentary -start heparin drip, will then bridged to Eliquis if no bleeding -monitor for hematuria as patient had recent tumor resection -not requiring supplemental O2 # bladder cancer s/p tumor resection -underwent resection by Dr. Christian 2 weeks ago -pathology confirmed urothelial carcinoma -still has Reza but spoke with Dr. Valentino who recommended removal and dose of antibiotics -f/up outpatient with urology # hypertension -continue losartan # GERD -maalox PRN Code status is full code. DVT prophylaxis with heparin drip. Proxy is . I have reviewed home meds and used all available resources to reconcile the home meds. Case discussed with ED physician/APC and patient will be admitted to the hospitalist service for further workup and management. This patient will be admitted as observation and will require less than 2 midnights of hospital time to treat acute PE.
[2023-10-30 15:35] LABS: Magnesium 2.5 mg/dL (1.6-2.3)
[2023-10-30 16:49] LABS: Appearance Urine UA CLEAR; Bilirubin Urine UA NEGATIVE (NEGATIVE); Glucose Urine UA NEGATIVE (Negative); Ketones Urine UA NEGATIVE (NEGATIVE); Leukocyte Esterase Urine UA NEGATIVE (NEGATIVE); Nitrite Urine UA POSITIVE (Negative); Occult Blood Urine UA 2+ (Negative); Protein Urine UA NEGATIVE (Negative); Urobilinogen Urine UA 0.2 E.U./dL (0.2)
[2023-10-30 16:53] LABS: Color Urine UA Dark Yellow
[2023-10-30 17:14] LABS: Urine Volume 10mL (spun)
[2023-10-30 17:18] LABS: Bacteria Urine Few (2-10); Culture Indicated Urine Cult Not Indicated; RBC Urine 5-10/HPF (0-5/HPF); Squamous Epithelial Cell Urine 0-1 /HPF (0-5/HPF); WBC Urine 0-1/HPF (0-5/HPF)
--- NOTE | 2023-10-30 17:26 | PC.NURSE ---
Addendum entered by Evelyn Madera R.N. 10/30/23 18:57: Remy Perez'd at 1600 due to void at 0200 Original Note: Patient arrived to room 204 this afternoon from ED. He is able to ambulate with weak unsteady gait, limp to LLE. Noted +1 non pitting edema and warmth to LLE. VSS, afebrile on RA although he reports SOB with activity.Cipro IV abx completed. Per orders reza catheter removed and urine specimen sent to lab. Patient reports poor appetite but is able to tolerate soup for dinner. He denies n/v. Bed alarm, call light in reach, fall precautions, admission assessment completed,continuous monitoring
[2023-10-30] MEDS: FAMOTIDINE 20 MG TABLET PO (20:29)
--- NOTE | 2023-10-30 23:36 | PC.NURSE ---
Addendum entered by Bindu Dunn R.N. 10/31/23 06:24: Having some urinary burning and urgency this morning; no blood noted in urine Addendum entered by Bindu Dunn R.N. 10/31/23 01:17: Noted that admission weight was actually 73.3kg so heparin adjusted for corrected weight after discussion with coordinator, KEVIN Mckinley. Original Note: Patient is alert and oriented. Breath sounds diminished but CTA and denies any current SOB; RA sat was 96%. HRR and telemetry (ordered by Dr. Nelson after being contacted as no telemetry was ordered by Dr. Reis) was SR. Denied nausea but complained of heartburn so received order from Dr. Nelson for Famotidine which was administered. Last BM was 3/2 and has BT but denied flatus but also refused to take anything for constipation. Had catheter removed at 1600 and has been voiding per urinal; did complain of some mild penile irritation but had no blood in urine. Is able to turn himself in bed. Up to urinate using walker and 1 assist as is unsteady on feet and has increased discomfort in left LE with movement. Left LE is swollen but no firm area or redness noted but is tender to touch. Understands plan to start heparin infusion at 0100 and will have lab drawn prior per heparin protocol. Fall risk score is moderate but bed alarm not activated as patient is calling for assistance appropriately.
[2023-10-31] VITALS: BP 137/76; PULSE 61; RESP 16; TEMP 36.9; O2SAT 95
[2023-10-31 00:44] LABS: Add Manual Diff / Slide Review NO; Basophils Absolute Auto 100 /uL (0-100); Basophils Percent Auto 0.6 % (0-2); Eosinophils Absolute Auto 200 /uL (0-450); Hematocrit 34.6 % (41-53); Hemoglobin 11.9 g/dL (13.5-17.5); Lymphocytes Absolute Auto 1400 /uL (1100-4500); Mean Corpuscular HGB Conc 34.3 % (30-36); Mean Corpuscular Hemoglobin 34.3 PG (26-34); Mean Corpuscular Volume 99.8 fL (80-100); Monocytes Absolute Auto 1200 /uL (0-900); Monocytes Percent Auto 10.5 % (3-14); Neutrophils Absolute Auto 8600 /uL (1500-7000); Neutrophils Percent Auto 74.9 % (50-75); Platelet Count 239 X10^3/uL (150-400); Red Blood Cell Count 3.47 X10^6/uL (4.5-5.9); Red Cell Distribution Width 12.8 % (11.6-14.8); White Blood Cell Count 11.5 X10^3/uL (4.5-11.0)
[2023-10-31 00:49] LABS: INR 1.6 (0.9-1.3); Prothrombin Time 18.2 SECONDS (9.4-12.5)
[2023-10-31 00:52] LABS: PTT Partial Thromboplastin Tim 39 SECONDS (25.1-36.5)
[2023-10-31] MEDS: HEPARIN 5,000 UNIT/ML VIAL 5000 UNIT IV (00:58)
[2023-10-31] MEDS: SODIUM CHLORIDE 0.9% FLUSH 10 ML IV ×2 (00:59→08:19)
[2023-10-31] MEDS: HEPARIN DRIP 25,000 UNIT/500 ML IV.SOLN 26.4 UNIT IV (01:04)
[2023-10-31] MEDS: ACETAMINOPHEN 325 MG TABLET 650 MG PO ×2 (02:01→08:17)
[2023-10-31 05:53] VITALS: BP 134/67; PULSE 60; RESP 16; TEMP 36.6; O2SAT 96
[2023-10-31 07:17] LABS: Add Manual Diff / Slide Review NO; Basophils Absolute Auto 100 /uL (0-100); Basophils Percent Auto 0.8 % (0-2); Eosinophils Absolute Auto 200 /uL (0-450); Eosinophils Percent Auto 2.2 % (2-4); Hematocrit 33.3 % (41-53); Hemoglobin 11.5 g/dL (13.5-17.5); Lymphocytes Absolute Auto 1200 /uL (1100-4500); Lymphocytes Percent Auto 11.7 % (25-40); Mean Corpuscular HGB Conc 34.6 % (30-36); Mean Corpuscular Hemoglobin 34.8 PG (26-34); Mean Corpuscular Volume 100.8 fL (80-100); Monocytes Absolute Auto 1200 /uL (0-900); Monocytes Percent Auto 11.5 % (3-14); Neutrophils Absolute Auto 7500 /uL (1500-7000); Neutrophils Percent Auto 73.8 % (50-75); Platelet Count 237 X10^3/uL (150-400); Red Cell Distribution Width 12.6 % (11.6-14.8); White Blood Cell Count 10.2 X10^3/uL (4.5-11.0)
[2023-10-31 07:31] LABS: BUN Creatinine Ratio 24.5 (6-22); Blood Urea Nitrogen 23 mg/dL (9-20); Calcium 8.9 mg/dL (8.4-10.2); Carbon Dioxide 23 mmol/L (22-32); Chloride 102 mmol/L (98-107); Estimated Glomerular Filt Rate > 60 mL/min (>60); Glucose 120 mg/dL (80-110); HEMOLYSIS < 15 (0-50); Potassium 4.4 mmol/L (3.4-5.1); Sodium 132 mmol/L (137-145)
[2023-10-31 07:35] LABS: PTT Partial Thromboplastin Tim 99 SECONDS (25.1-36.5)
[2023-10-31 08:00] VITALS: BP 127/71; PULSE 68; RESP 16; TEMP 37.1; O2SAT 96
[2023-10-31] MEDS: SENNOSIDES 8.6 MG TABLET PO (08:17)
[2023-10-31] MEDS: FAMOTIDINE 20 MG TABLET PO (08:17)
[2023-10-31] MEDS: polyethylene glycoL 3350 17 GM POWD.PACK PO (08:17)
--- NOTE | 2023-10-31 11:14 | P.DS_ITS ---
History of Present Illness History of Present Illness Chief complaint: poss blood clot in L leg, sent by Dr. Christian Narrative: Wesley Rivera is a 72yo M with PMH of bladder cancer s/p tumor resection 2 weeks ago and HTN who presents with acute dyspnea and L calf swelling. Patient first noticed swelling in his left calf about 4 days ago which progressed into exertional dyspnea. He has had some bleeding around the meatus at the reza insertion site. He had some hematuria after his resection, but none now. Patient not requiring supp O2 in ED. Found to have subsegmental PE's without R heart strain. DVT US shows extensive clot in L leg. He was given 1 dose of eliquis 10mg. Denies CP, SOB at rest, NV, abd pain or diarrhea. Discharge Providers Provider Date of admission: 10/30/23 14:27 Discharge Date: 10/31/23 Primary care physician: Sean Burr MD Discharge provider: Bridger Reis DO Summary Hospital Course Discharge Diagnosis: # acute pulmonary embolism -CT with bilateral subsegmental PE's, no right heart strain -DVT US with clot in L calf -etiology likely due to recent surgery, cancer and patient has been sedentary -start heparin drip, will then bridged to Eliquis if no bleeding -monitor for hematuria as patient had recent tumor resection, no evidence of bleeding on heparin drip -not requiring supplemental O2 -start on eliquis 10mg BID x7 days, then 5mg BID # bladder cancer s/p tumor resection -underwent resection by Dr. Christian 2 weeks ago -pathology confirmed urothelial carcinoma -still has Reza but spoke with Dr. Valentino who recommended removal and dose of antibiotics -has f/up outpatient with Dr. Christian, urology on 10/31 # hypertension -continue losartan # GERD -maalox PRN Hospital Course: Admitted for acute L calf pain and SOB, and found to have bilateral PE's and LLE DVT. Not hypoxic and no R heart strain. Admitted for monitoring as he had bleeding around meatus likely from reza. Urology ok with removing reza and starting eliquis if no bleeding on heparin drip. He did well, and had no bleeding so was discharged home on eliquis to f/up with urology and PCP. Exam Vital Signs (past 8 hours): - 10/31/23 05:53 10/31/23 07:45 10/31/23 08:00 Temperature 97.9 F 98.7 F Pulse Rate 60 68 Respiratory Rate 16 16 Blood Pressure 134/67 127/71 Pulse Oximetry 96 96 Oxygen Delivery Method Room Air Oxygen Flow Rate 0 0 Oxygen Delivery Method Room Air Oxygen Flow Rate 0 Narrative Exam Narrative: GEN: no acute distress HEENT: moist mucous membranes, PERRL NECK: trachea midline, no JVD CV: regular rate and rhythm, no murmurs PULM: clear bilaterally ABD: soft, nontender, nondistended, no organomegaly EXT: left calf more swollen than the right NEURO: awake, alert, oriented, no focal deficits Objective Labs 10/31/23 07:02 10/31/23 07:02 Labs: Laboratory Results - last 24 hr 10/30/23 10/30/23 10/31/23 12:21 15:20 00:30 WBC 13.1 H 11.5 H RBC 3.65 L 3.47 L Hgb 12.4 L 11.9 L Hct 36.7 L 34.6 L MCV 100.5 H 99.8 MCH 34.0 34.3 H MCHC 33.8 34.3 RDW 12.5 12.8 Plt Count 237 239 Neut % (Auto) 79.0 H 74.9 Lymph % (Auto) 7.3 L 12.0 L [place] % (Auto) 12.1 10.5 Eos % (Auto) 0.6 L 2.0 Baso % (Auto) 1.0 0.6 Neut # (Auto) 62218 H 8600 H Lymph # (Auto) 900 L 1400 [place] # (Auto) 1600 H 1200 H Eos # (Auto) 100 200 Baso # (Auto) 100 100 PT 14.8 H 18.2 H INR 1.3 1.6 H APTT 34 39 H Sodium 132 L Potassium 4.4 Chloride 101 Carbon Dioxide 24 BUN 35 H Creatinine 1.25 Estimated GFR > 60 BUN/Creatinine Ratio 28.0 H Glucose 118 H Lactate 1.1 Calcium 9.4 Magnesium 2.5 H Total Bilirubin 0.9 AST 35 ALT 30 Alkaline Phosphatase 83 Troponin I < 0.012 NT-Pro-B Natriuret Pep 124 Total Protein 7.7 Albumin 3.8 Globulin 3.9 Albumin/Globulin Ratio 1.0 Urine Color Dark yellow Urine Appearance Clear Urine pH 5.0 Ur Specific Pyote 1.010 Urine Protein Negative Urine Glucose (UA) Negative Urine Ketones Negative Urine Occult Blood 2+ H Urine Nitrate Positive H Urine Bilirubin Negative Urine Urobilinogen 0.2 Ur Leukocyte Esterase Negative Urine RBC 5-10/hpf H Urine WBC 0-1/hpf Ur Squamous Epith Cells 0-1 /hpf Urine Bacteria Few (2-10) H Ur Culture Indicated? Cult not indicated Vol Urine Centrifuged 10ml (spun) 10/31/23 07:02 WBC 10.2 RBC 3.30 L Hgb 11.5 L Hct 33.3 L MCV 100.8 H MCH 34.8 H MCHC 34.6 RDW 12.6 Plt Count 237 Neut % (Auto) 73.8 Lymph % (Auto) 11.7 L [place] % (Auto) 11.5 Eos % (Auto) 2.2 Baso % (Auto) 0.8 Neut # (Auto) 7500 H Lymph # (Auto) 1200 [place] # (Auto) 1200 H Eos # (Auto) 200 Baso # (Auto) 100 PT INR APTT 99 H* D Sodium 132 L Potassium 4.4 Chloride 102 Carbon Dioxide 23 BUN 23 H Creatinine 0.94 Estimated GFR > 60 BUN/Creatinine Ratio 24.5 H Glucose 120 H Lactate Calcium 8.9 Magnesium Total Bilirubin AST ALT Alkaline Phosphatase Troponin I NT-Pro-B Natriuret Pep Total Protein Albumin Globulin Albumin/Globulin Ratio Urine Color Urine Appearance Urine pH Ur Specific Pyote Urine Protein Urine Glucose (UA) Urine Ketones Urine Occult Blood Urine Nitrate Urine Bilirubin Urine Urobilinogen Ur Leukocyte Esterase Urine RBC Urine WBC Ur Squamous Epith Cells Urine Bacteria Ur Culture Indicated? Vol Urine Centrifuged [facility] Medical History (Updated 10/30/23 @ 14:14 by Preston Harman MD) History of tobacco use Bladder outlet obstruction Lower urinary tract symptoms Secondhand smoke exposure Gross hematuria Bladder mass Male circumcision History of migraine Constipation Osteoarthritis of right hip Primary hypertension Surgical History H/O oral surgery History of appendectomy Family History Father Cancer Hypertension Mother Cancer Social History household members: spouse Smoking Status: Former smoker alcohol intake: current Discharge Plan Discharge Plan Patient Disposition: Home Provider Discharge Comment: You were diagnosed with pulmonary embolism and DVT in your left leg. You will now be on blood thinners to prevent reoccurrence and please start taking them the evening of 10/30. These are continued for up to 3-6 months. Your PCP will decide on final duration and will continue to fill the eliquis I have started you on. Please f/up with your urologist. Discharge orders & Medications Prescriptions: New Eliquis 5 mg Tablet See Rx Instructions .ROUTE .COMPLEX Qty: 30 0RF Rx Instructions: take 2 tabs (10mg) twice daily for 6 days, then take 1 tab (5mg) twice daily after that Continued losartan 50 mg tablet 75 mg PO DAILY Qty: 135 3RF Rx Instructions: takes 50 mg one day and 100 the next (rotating) docusate sodium 200 mg PO DAILY Tylenol Extra Strength 1,000 mg PO 3XD MDD 4,000 mg PRN (Reason: Pain) Follow up/Referrals: Sean Burr MD [Primary Care Provider] - 2 Weeks Visit Report/Discharge Packet Instructions: DI for Pulmonary Embolism Stand Alone Forms: Patient Portal/API Discharge Data Primary Care Provider: Sean Burr
[2023-10-31] MEDS: APIXABAN 5 MG TABLET 10 MG PO (11:19)
--- NOTE | 2023-10-31 12:00 | PC.NURSE ---
Day shift: Paperwork signed and all questions answered. Has all personal belongings. Spouse is picking up new MD script now. Left unit via WC at approx 1230. Taken to car by staff member. Pt's Spouse is driving.
--- NOTE | 2023-10-31 12:57 | CM.DANOTE ---
Initial DCP Assessment Visit Note Reviewed EMR and team rounds for pt's medical status and anticipated home d/c needs. AUTOMATIC VULCANIZING LEAD OPERATOR was unable to meet with him in person due to him having discharged prior to this AUTOMATIC VULCANIZING LEAD OPERATOR's ability to meet with him f/f. Plan is for pt to d/c home w/, OP f/u with Urology. No further DCP needs identified at this time. Payor: WARREN CAMACHO Adv PCP: Dr. Burr Pt is a 72 year-old M who presented to the ED last evening with bilateral leg swelling, the left being the worst, and increasing shortness of breath over the last week. He is post-op 2-weeks from having a bladder outlet resection surgery with [facility]. She states that he's now having trouble walking due to the worsening pain, and does use a walker/cane at baseline for mobility. ED ultrasound in the ED showed a DVT in the common femoral, as well as the popliteal veins and scattered throughout the L-calf veins. He was started on anticoagulation, IV ABO's in the ED, then admitted for further eval/tx. Urology was consulted, they recommended removing the reza catheter due to hematuria. Discharge Planning/Care Management CM Discharge Assessment Start: 10/31/23 12:53 Freq: Status: Discharge Protocol: Document 10/31/23 12:53 DPL (Rec: 10/31/23 12:56 DPL [id number]) Discharge Planning Assessment Assigned Wind Farm Operations Manager FRED Franklin Advance Directives? Yes Advance Directives on File Yes History Provided By Medical Record Expected Length of Stay 1 Has Patient been admitted in last 30 No days? Prior Living Arrangements House Household Members spouse Type of transporation used prior to Drives own vehicle admit Independent with ADL's Yes Is patient alert and oriented? Yes Caregiver for Another No Comment OP Urology DME Already Rented / Owned FWW / Walker,Cane Comment No identified d/c needs at this time. Barriers to Discharge No Discharge Plan Home Referrals Initiated None needed If patient plan is home with home health No : Has signed face to face form been completed? If patient plan is SNF: Has PASSR been No completed? Comment Pt discharged the building prior to this AUTOMATIC VULCANIZING LEAD OPERATOR being able to meet with him f/f. Review Status In Process Please Provide Date Initial DC 10/31/23 Assessment Was Performed
== END 2023-10-31 12:25 | disposition home or self-care (01) | DRG 300 ==
LOC: ED 14:14 → AC 14:31
PROVIDERS: Admitting Provider Student in an Organized Health Care Education/Training Program; Emergency Provider Emergency Medicine; Family Provider Family Medicine; PCP Family Medicine; Referring Provider Emergency Medicine; Visit Provider Student in an Organized Health Care Education/Training Program
DX: T81.718A Complication of other artery following a procedure, not elsewhere classified, initial encounter (principal); I82.412 Acute embolism and thrombosis of left femoral vein; I82.432 Acute embolism and thrombosis of left popliteal vein; T83.83XA Hemorrhage due to genitourinary prosthetic devices, implants and grafts, initial encounter; I26.94 Multiple subsegmental thrombotic pulmonary emboli without acute cor pulmonale; C67.9 Malignant neoplasm of bladder, unspecified; I10 Essential (primary) hypertension; K21.9 Gastro-esophageal reflux disease without esophagitis; Z87.891 Personal history of nicotine dependence; R00.1 Bradycardia, unspecified
CPT/HCPCS: 36415; 71045; 71275; 80048; 80053; 81001; 83605; 83735; 83880; 84484; 85025; 85610; 85730; 87086; 93005; 93010; 93971; 99284; 99285; G0378; A9270; J0744; J1644; Q9967

== ENCOUNTER → 2023-11-01 15:35 | Outpatient (CLI) | payer MEDICARE, SELFPAY ==
[2023-10-31 11:24] VITALS: BMI 23.1
== END ==
PROVIDERS: Family Provider Family Medicine; PCP Family Medicine; Visit Provider Urology
DX: N32.0 Bladder-neck obstruction (principal); R31.0 Gross hematuria
CPT/HCPCS: 81002; 87086

== ENCOUNTER → 2023-12-11 12:57 | Outpatient (CLI) | payer MEDICARE, SELFPAY ==
[2023-10-31 11:24] VITALS: BMI 23.1
[2023-12-11 14:02] LABS: Appearance Urine UA CLEAR; Bilirubin Urine UA NEGATIVE (NEGATIVE); Color Urine UA YELLOW; Glucose Urine UA NEGATIVE (Negative); Ketones Urine UA NEGATIVE (NEGATIVE); Leukocyte Esterase Urine UA 1+ (NEGATIVE); Nitrite Urine UA NEGATIVE (Negative); Occult Blood Urine UA 2+ (Negative); Protein Urine UA NEGATIVE (Negative); Urobilinogen Urine UA 0.2 E.U./dL (0.2); pH Urine UA 6.5 (4.5-8.0)
[2023-12-11 14:22] LABS: Bacteria Urine Occasional (0-1); Culture Indicated Urine Cult Not Indicated; RBC Urine 0-1/HPF (0-5/HPF); Squamous Epithelial Cell Urine 1-5 /HPF (0-5/HPF); Urine Volume 10mL (spun); WBC Urine 1-5/HPF (0-5/HPF)
== END ==
PROVIDERS: Family Provider Family Medicine; PCP Family Medicine; Referring Provider Urology; Visit Provider Urology
DX: R39.9 Unspecified symptoms and signs involving the genitourinary system (principal)
CPT/HCPCS: 81001

== ENCOUNTER → 2023-12-19 09:44 | Outpatient (CLI) | payer MEDICARE, SELFPAY ==
[2023-10-31 11:24] VITALS: BMI 23.1
== END ==
PROVIDERS: Family Provider Family Medicine; PCP Family Medicine; Visit Provider Urology
DX: R39.9 Unspecified symptoms and signs involving the genitourinary system (principal)
CPT/HCPCS: 87086

== ENCOUNTER → 2024-12-10 08:03 | Outpatient (CLI) | payer MEDICARE, SELFPAY ==
[2023-12-19 09:52] VITALS: BMI 23.1
[2024-12-10 08:41] LABS: Add Manual Diff / Slide Review NO; Basophils Absolute Auto 100 /uL (0-100); Basophils Percent Auto 1.1 % (0-2); Eosinophils Absolute Auto 200 /uL (0-450); Eosinophils Percent Auto 3.5 % (2-4); Hematocrit 41.6 % (41-53); Hemoglobin 14.3 g/dL (13.5-17.5); Lymphocytes Absolute Auto 1900 /uL (1100-4500); Lymphocytes Percent Auto 37.3 % (25-40); Mean Corpuscular HGB Conc 34.2 % (30-36); Mean Corpuscular Hemoglobin 35.1 PG (26-34); Mean Corpuscular Volume 102.5 fL (80-100); Monocytes Absolute Auto 700 /uL (0-900); Monocytes Percent Auto 13.5 % (3-14); Neutrophils Absolute Auto 2200 /uL (1500-7000); Neutrophils Percent Auto 44.6 % (50-75); Platelet Count 167 X10^3/uL (150-400); Red Blood Cell Count 4.06 X10^6/uL (4.5-5.9); Red Cell Distribution Width 13.6 % (11.6-14.8)
[2024-12-10 09:02] LABS: Alanine Aminotransferase 25 IU/L (<50); Albumin 4.1 g/dL (3.5-5.0); Albumin Globulin Ratio 1.4 (1.0-2.8); Alkaline Phosphatase 97 U/L (38-126); Aspartate Aminotransferase 42 IU/L (17-59); BUN Creatinine Ratio 17.4 (6-22); Bilirubin Total 0.9 mg/dL (0.2-1.3); Blood Urea Nitrogen 19 mg/dL (9-20); Calcium 9.2 mg/dL (8.4-10.2); Carbon Dioxide 24 mmol/L (22-32); Chloride 103 mmol/L (98-107); Cholesterol 218 mg/dL (140-199); Estimated Glomerular Filt Rate > 60 mL/min (>60); Glucose 91 mg/dL (80-110); HDL Cholesterol 105 mg/dL (40-60); HEMOLYSIS < 15 (0-50); LDL Cholesterol Calculated 99 mg/dL (<100); Potassium 4.5 mmol/L (3.4-5.1); Sodium 137 mmol/L (137-145); Total Protein 7.1 g/dL (6.3-8.2); Triglycerides 68 mg/dL (35-150)
[2024-12-10 09:28] LABS: Creatinine Urine Random 67.79 mg/dL
[2024-12-10 09:33] LABS: Microalbumin Urine Random < 0.6 mg/dL (0-1.6)
[2024-12-10 10:46] LABS: Hep C Virus Ab w/Reflex Quant NEGATIVE s/c (NEGATIVE)
== END ==
PROVIDERS: Family Provider Family Medicine; PCP Family Medicine; Referring Provider Family Medicine; Visit Provider Family Medicine
DX: C67.9 Malignant neoplasm of bladder, unspecified (principal); I10 Essential (primary) hypertension; D75.89 Other specified diseases of blood and blood-forming organs; Z13.220 Encounter for screening for lipoid disorders; M16.11 Unilateral primary osteoarthritis, right hip
CPT/HCPCS: 36415; 80053; 80061; 82043; 82570; 84443; 85025; 86803

== ENCOUNTER → 2025-07-16 08:50 | Outpatient (CLI) | payer MEDICARE, SELFPAY ==
[2025-03-06 12:37] VITALS: BMI 23.1
--- NOTE | 2025-07-16 08:51 | DI.CT.S_ITS ---
PROCEDURE: CT IVP A/P W/WO INDICATIONS: 74 y/o M w/ h/o bladder cancer, eval upper tracts TECHNIQUE: Optional 5 mm thick noncontrast images acquired from the diaphragm to the symphysis pubis. After the administration of intravenous contrast, 5 mm thick images acquired from the diaphragm to the symphysis pubis after a 10-minute delay. 2 mm thick coronal and sagittal reformats were then performed of the kidneys and ureters. For radiation dose reduction, the following was used: automated exposure control, adjustment of mA and/or kV according to patient size. COMPARISON: [facility], CT, CT ABDOMEN PELVIS W CON, 09/21/2023, 21:06. FINDINGS: Image quality: Diagnostic. Kidneys and Ureters: Both kidneys are normal in size, without hydronephrosis or nephrolithiasis. No perinephric fat stranding. There is normal bilateral renal enhancement. Renal calyces appear normal in morphology when filled with contrast. Opacified portions of both ureters demonstrate normal caliber Bladder: Bladder wall thickness is normal. No calcified bladder stones. The right-sided partially obstructive bladder mass adjacent to the right ureteral insertion is now absent. OTHER: Lower chest: Unremarkable. Liver: No solid mass. Several hepatic cysts, water density, again noted. Gallbladder: No radiopaque gallstones or wall thickening. Biliary ducts: No biliary dilation. Pancreas: No ductal dilation. Spleen: Size is within normal limits. Adrenal Glands: No adrenal nodules. Stomach and Bowel: Normal colonic caliber, without significant wall thickening. Peritoneum: No abnormal intraperitoneal fluid. No free air. Ventral Wall: No hernia. Abdominal Nodes: No retroperitoneal or mesenteric adenopathy by size criteria. Vessels: Aorta and inferior vena cava are normal in size. PELVIS: Pelvic Organs: Unremarkable. Pelvic Nodes: No enlarged lymph nodes. Miscellaneous: No inguinal hernias are seen. Bones: No aggressive osseous abnormality. IMPRESSION: No nephrolithiasis or filling defects within the opacified renal collecting system or ureters. Resolution of a enhancing right bladder mass that was previously partially a obstructing outflow from the right kidney, resolution of mild right hydronephrosis previously present. No regional adenopathy or evidence of distant metastatic disease is found. Dictated by: Freddie Ravi M.D. on 07/16/2025 at 11:53 Approved by: Freddie Ravi M.D. on 07/16/2025 at 11:57
[2025-07-16 09:10] LABS: Add Manual Diff / Slide Review NO; Hematocrit 40.1 % (41-53); Hemoglobin 14.0 g/dL (13.5-17.5); Lymphocytes Absolute Auto 1300 /uL (1100-4500); Mean Corpuscular HGB Conc 34.9 % (30-36); Mean Corpuscular Hemoglobin 35.2 PG (26-34); Mean Corpuscular Volume 100.8 fL (80-100); Platelet Count 171 X10^3/uL (150-400)
[2025-07-16 09:20] LABS: Estimated Glomerular Filt Rate > 60 mL/min (>60)
== END ==
LOC: CT 08:51
PROVIDERS: PCP Family Medicine; Referring Provider Urology; Visit Provider Urology
DX: I10 Essential (primary) hypertension (principal); Z85.51 Personal history of malignant neoplasm of bladder; Z85.59 Personal history of malignant neoplasm of other urinary tract organ
CPT/HCPCS: 36415; 74178; 82565; 85025; Q9967

== ENCOUNTER → 2025-08-04 13:28 | Outpatient (CLI) | payer MEDICARE, SELFPAY ==
[2025-03-06 12:37] VITALS: BMI 23.1
--- NOTE | 2025-08-04 13:29 | DI.RAD.S_ITS ---
PROCEDURE: XR FOREARM LT 2V INDICATIONS: Ground level fall TECHNIQUE: 2 views of the forearm were acquired. COMPARISON: None. FINDINGS: Bones: Distracted olecranon fracture. Soft tissues: No suspicious soft tissue calcifications or masses. Soft tissue swelling of the dorsal elbow. IMPRESSION: Distracted olecranon fracture. Dictated by: Surjit Duggan M.D. on 08/04/2025 at 23:39 Approved by: Surjit Duggan M.D. on 08/04/2025 at 23:40
--- NOTE | 2025-08-04 13:29 | DI.RAD.S_ITS ---
PROCEDURE: XR ELBOW LT MIN 3V INDICATIONS: Ground level fall TECHNIQUE: 3 views of the elbow were acquired. COMPARISON: None. FINDINGS: Bones: Distracted, intra-articular fracture of the olecranon. Soft tissues: Large elbow joint effusion. No suspicious soft tissue calcifications. Dorsal elbow edema. IMPRESSION: Distracted, intra-articular fracture of the olecranon. Dictated by: Surjit Duggan M.D. on 08/04/2025 at 23:40 Approved by: Surjit Duggan M.D. on 08/04/2025 at 23:40
== END ==
PROVIDERS: PCP Family Medicine; Referring Provider Nurse Practitioner Family; Visit Provider Nurse Practitioner Family
DX: S52.032A Displaced fracture of olecranon process with intraarticular extension of left ulna, initial encounter for closed fracture (principal); W18.30XA Fall on same level, unspecified, initial encounter
CPT/HCPCS: 73080; 73090

== ENCOUNTER → 2025-08-07 08:52 | Outpatient (CLI) | payer MEDICARE, SELFPAY ==
[2025-03-06 12:37] VITALS: BMI 23.1
--- NOTE | 2025-08-07 09:26 | EKG_ITS ---
[facility] [address], [place] [address] Test Date: 2025-08-07 Pat Name: Wesley Rivera Department: [facility] Room: Gender: Male Regional Recruiter: JORJE : 1950 Requested By: Order Number: [id number] Reading MD: Wesley Patel MD Measurements Intervals [place] Rate: 47 P: 65 [place]: 166 QRS: 48 QRSD: 90 T: 8 QT: 460 QTc: 407 Interpretive Statements Sinus bradycardia with premature atrial complexes Electronically Signed On 08-07-2025 10:23:21 PST by Wesley Patel MD
[2025-08-07 10:13] LABS: Albumin 4.4 g/dL (3.5-5.0); Blood Urea Nitrogen 16 mg/dL (9-20); Calcium 9.8 mg/dL (8.4-10.2); Carbon Dioxide 26 mmol/L (22-32); Chloride 106 mmol/L (98-107); Estimated Glomerular Filt Rate > 60 mL/min (>60); Glucose 94 mg/dL (70-99); HEMOLYSIS < 15 (0-50); Potassium 4.9 mmol/L (3.4-5.1); Sodium 140 mmol/L (137-145)
[2025-08-07 10:21] LABS: Prealbumin 24.6 mg/dL (17.6-36.0)
[2025-08-07 10:32] LABS: Hemoglobin A1C% w Est Avg Glu 5.0 % (4.0-6.0)
== END ==
PROVIDERS: PCP Family Medicine; Referring Provider Orthopaedic Surgery; Visit Provider Orthopaedic Surgery
DX: Z01.818 Encounter for other preprocedural examination (principal); Z13.29 Encounter for screening for other suspected endocrine disorder; Z13.0 Encounter for screening for diseases of the blood and blood-forming organs and certain disorders involving the immune mechanism; Z13.21 Encounter for screening for nutritional disorder; Z13.228 Encounter for screening for other metabolic disorders
CPT/HCPCS: 36415; 80048; 82040; 83036; 84134; 93005

== ENCOUNTER → 2025-08-11 10:58 | Outpatient (CLI) | payer MEDICARE, SELFPAY ==
[2025-03-06 12:37] VITALS: BMI 23.1
--- NOTE | 2025-08-11 10:59 | DI.RAD.S_ITS ---
PROCEDURE: ORTHO-XR HIP BILAT W/PEL 3-4 INDICATIONS: pain TECHNIQUE: 3 views of the hip were acquired. COMPARISON: [facility], CT, CT IVP A/P W/WO, 07/16/2025, 9:27. FINDINGS AND IMPRESSION: Mild bilateral hip arthrosis. No acute displaced fracture. No dislocation. No suspicious soft tissue calcifications. Small pelvic phleboliths are present. If there is high concern for further derangement, consider MRI evaluation. Dictated by: Mich Lancaster M.D. on 08/11/2025 at 12:44 Approved by: Mich Lancaster M.D. on 08/11/2025 at 12:45
== END ==
PROVIDERS: PCP Family Medicine; Referring Provider Orthopaedic Surgery; Visit Provider Orthopaedic Surgery
DX: R52 Pain, unspecified (principal)
CPT/HCPCS: 73522

== ENCOUNTER 2025-08-11 10:59 | Day surgery (SDC) | payer MEDICARE, SELFPAY ==
[2025-03-06 12:37] VITALS: BMI 23.1
[2025-08-11] VITALS (7 sets, daily range): BP systolic 168–181; BP diastolic 75–88; PULSE 48–66; RESP 12–65; TEMP 36.2–37.2; O2SAT 95–99
[2025-08-11] MEDS: ACETAMINOPHEN 325 MG TABLET 975 MG PO (11:46)
[2025-08-11] MEDS: PREGABALIN 75 MG CAPSULE PO (11:46)
[2025-08-11] MEDS: FAMOTIDINE 20 MG/2 ML VIAL IV (11:46)
[2025-08-11] MEDS: LACTATED RINGERS 1,000 ML 42 ML IV ×2 (11:47→14:08)
--- NOTE | 2025-08-11 12:04 | PM.PREOP ---
Pre-operative Note Interval Note History & Physical reviewed/Exam performed by Physician: Yes Changes to H&P: No
--- NOTE | 2025-08-11 13:16 | SUR.OPER ---
Addendum entered by Kesha Jeffries RN 08/11/25 13:38: Left arm rested on paint roller positioner, which is under the sterile drape and secured to the bed. Original Note: Lateral on a magaña bag, head on pillow, gel axillary roll in place, bottom leg bent with gel pad under knee to foot, upper leg straight and supported with pillows. Upper arm prepped and draped in surgical field. Lower arm (right) extended and secured on armboard. Safety belt at hip, tape over blanket lower legs, and at torso. Pressure points padded. Position verified by surgeon and anesthesia.
--- NOTE | 2025-08-11 15:21 | DI.RAD.S_ITS ---
PROCEDURE: XR ELBOW LT 2V INDICATIONS: Post operative imaging TECHNIQUE: 2 views of the elbow were acquired. COMPARISON: [facility], CR, XR ELBOW LT MIN 3V, 08/04/2025, 13:38. FINDINGS: Bones: Overlying cast material obscures fine detail evaluation. Interval fixation of olecranon fracture. Hardware is intact without hardware fracture or periprosthetic lucency to suggest loosening. Alignment is stable. Soft tissues: No elbow joint effusion. No suspicious soft tissue calcifications. IMPRESSION: Olecranon fixation. Approved by: Aline Pelayo M.D. on 08/11/2025 at 15:54
--- NOTE | 2025-08-11 18:34 | PM.OP.1 ---
Operative Date/Time/Diagnoses Date of procedure: 08/11/25 Time of procedure: 13:00 Pre-op diagnosis: Left olecranon fracture Post-op diagnosis: same Procedure & Clinicians Procedure: Open reduction internal fixation of the left olecranon fracture Same procedure(s) as scheduled: Yes Surgeon: Scooter Purdy Assisted?: Yes Clinic Office Assistant: Gay Bosch Anesthesia Type: General Operative Notes Findings: Displaced intra-articular left olecranon fracture Closure Type: primary Specimen(s): none sent Applied: none Estimated Blood Loss (mL): 30 Blood products transfused: none Tourniquet time (min): 115 Procedure in detail: Laterality: LEFT Preoperative diagnosis: Displaced Olecranon Fracture Procedure performed: ORIF of the Olecranon Fracture Postoperative diagnosis: Same Primary Surgeon: Scooter Purdy MD Secondary Surgeon: LEIGH Randhawa Anesthesia: General EBL: 30 ml Tourniquet: 115 minutes @ 250 mmHg Implants: Arthrex Olecranon Plate and Screws Indication For Surgery: The patient had a displaced olecranon fracture. They were offered surgical fixation for reduction of pain, early range of motion and overall improvement in functinal outcomes. The risks, benefits, and alternatives were discussed. Risks include pain, bleeding, infection, damage to nearby structures and cartilage, lack of symptom relief, need for further surgery, DVT, PE, stroke, and . Written consent was obtained. Operative Findings: Dispaced Olceranon Fracture Procedure in Detail: The patient was met in the pre-operative hold area. Consent was verified and operative extremity was signed. The patient then met with anesthesia and was brought back to the operating room. The patient was placed supine on the operating table. A general anesthetic was administered. They were then placed in the lateral position. A axillary roll was placed and all bony prominences were padded. A magaña bag was inflated to hold the lateral position. The operative arm was then positioned over a paint roller positioner. The operative arm was prepped and draped in the usual sterile fashion. A timeout was performed per protocol. All were in agreement and we proceeded. The esmarch exsanguinated the limb and the sterile tourniquet was elevated. A dorsal longitudinal skin incision curving laterally was made. The fracture site was identified and opened. The fracture hematoma was cleared using currette, rongeur and irrigation. The fracture was then reduced utilizing a large tenaculum. The reduction was confirmed with AP and lateral fluorosocpy. Two K wires were then placed in order to help hold the reduction. A longitudinal incision was made through the triceps tendon insertion. This allowed for direct plate fixation to the bone. A olecranon plate was then chosen. The plate was contoured to wrap around the proximal aspect of the olecranon. Again the reduction and plate placement was confirmed with AP and Lateral fluoroscopy. A combination of 2.7 mm and 3.5 mm screws were placed throughout the plate. A whipstitch was also placed through the triceps tendon with 2 free limbs heading distally. These 2 free limbs were then tied through the plate distal the fracture site to help with the tension band types construct. Final fluoroscopy was taken which demonstrated a good reduction and no hardware concerns. Irrigation was performed. The wound was closed with vicryl in the fat and dermal layers, with nylon in the skin. Local anesthetic was injected into the surgical site. A sterile dressing and splint was applied. The patient was awakened and transitioned to the recovery room without issue. Postoperative Plan: Same day surgery discharge Splint and Sling until follow up Non weight bearing Sutures out at 2 weeks Follow up with Orthopedics in 2 weeks Scooter Purdy MD Complications: none Post-operative Condition: stable Disposition: PACU
== END 2025-08-11 16:48 | disposition home or self-care (01) ==
PROVIDERS: PCP Family Medicine; Referring Provider Orthopaedic Surgery; Visit Provider Orthopaedic Surgery
PROC: 0RSM04Z Reposition Left Elbow Joint with Internal Fixation Device, Open Approach (ICD-10-PCS; CPT 24685; principal; 2025-08-11 13:15)
DX: S52.032A Displaced fracture of olecranon process with intraarticular extension of left ulna, initial encounter for closed fracture (principal); I10 Essential (primary) hypertension; W18.39XA Other fall on same level, initial encounter; Z87.891 Personal history of nicotine dependence; Z85.51 Personal history of malignant neoplasm of bladder; Z86.718 Personal history of other venous thrombosis and embolism
CPT/HCPCS: 24685; 73070; 73522; C1713; J0689; J1100; J1171; J1885; J2405; J2704; J3010; J3490; J7120